=== PATIENT | female | born 1975 | race Caucasian/White ===

== ENCOUNTER 2016-06-02 00:32 | Inpatient (IN) | payer MEDICAID ==
[2016-06-02] MEDS ORDERED: Thiamine 200 MG/2 ML MDV IM ONE (01:30)
[2016-06-02] MEDS ORDERED: cloNIDine 0.1 MG Tab ONE (03:13)
[2016-06-02] MEDS ORDERED: diphenhydrAMINE 50 MG Cap ONE (03:13)
[2016-06-02] MEDS ORDERED: LORazepam 0.5 MG Tab ONE (03:49)
[2016-06-02] MEDS ORDERED: diphenhydrAMINE 50 MG Cap PO PRN (05:45)
[2016-06-02] MEDS ORDERED: Haloperidol 1 MG Tab PO SCH (06:00)
[2016-06-02] MEDS ORDERED: OXcarbazepine 300 MG Tab PO SCH (08:00)
[2016-06-02] MEDS: PARoxetine 20 MG Tab PO SCH (08:30)
[2016-06-02] MEDS: Haloperidol 1 MG Tab PO SCH ×2 (09:00→17:15)
[2016-06-02] MEDS ORDERED: Sodium Chloride 0.9% 10 ML Syringe FLUSH PRN (10:54)
[2016-06-02] MEDS: busPIRone 15 MG Tab PO SCH ×2 (11:23→20:42)
[2016-06-02] MEDS: Sodium Chloride 0.45% 1,000 ML IV SCH ×2 (12:23→20:40)
[2016-06-02] MEDS ORDERED: Metoclopramide 10 MG/2 ML SDV IVPUSH PRN (15:00)
[2016-06-02] MEDS: Acetaminophen 325 MG Tab PO PRN (15:24)
[2016-06-02] MEDS: Nicotine 21 MG/24 Hr Patch TRDERM SCH (16:45)
[2016-06-02] MEDS ORDERED: cloNIDine 0.1 MG Tab PO SCH (20:00)
[2016-06-02] MEDS ORDERED: ClonazePAM 1 MG Tab PO SCH (20:00)
[2016-06-02] MEDS: OXcarbazepine 150 MG Tab PO SCH (20:43)
[2016-06-03] MEDS: Acetaminophen 325 MG Tab PO PRN (02:59)
[2016-06-03] MEDS: Haloperidol 1 MG Tab PO SCH ×2 (03:00→09:37)
[2016-06-03 03:06] VITALS: BP 138/65
[2016-06-03] MEDS: busPIRone 15 MG Tab PO SCH (09:29)
[2016-06-03] MEDS: OXcarbazepine 150 MG Tab PO SCH (09:30)
[2016-06-03] MEDS: Nicotine 21 MG/24 Hr Patch TRDERM SCH (09:33)
[2016-06-03] MEDS: PARoxetine 20 MG Tab PO SCH (09:36)
[2016-06-03] MEDS ORDERED: PARoxetine 20 MG Tab ONE (09:41)
[2016-06-03] MEDS ORDERED: Haloperidol 1 MG Tab ONE (09:42)
== END 2016-06-03 11:01 | disposition home or self-care (01) | DRG 684 ==
LOC: LB.ED 00:32 → UNDOADMIN 02:55 → LB.MS 02:55
PROVIDERS: ADMIT Internal Medicine; ATTEND Internal Medicine
DX: N17.9 Acute kidney failure, unspecified (principal); T51.2X4A Toxic effect of 2-Propanol, undetermined, initial encounter; Y92.009 Unspecified place in unspecified non-institutional (private) residence as the place of occurrence of the external cause; F10.21 Alcohol dependence, in remission; F31.9 Bipolar disorder, unspecified; Z87.891 Personal history of nicotine dependence
CPT/HCPCS: 36415; 80048; 80053; 80307; 81001; 82550; 83735; 84550; 85025; 93005; 96372; 99285-25; A0425; A0429; A9270-GY; G0480; J2765; J3411; J3490; J7050

== ENCOUNTER 2016-06-22 08:54 | Emergency (ER) | payer MEDICAID ==
[2016-06-22] MEDS ORDERED: Albuterol/Ipratropium 3.0-0.5 MG/3 ML Neb Soln NEB STA (09:30)
[2016-06-22] MEDS ORDERED: Albuterol/Ipratropium 3.0-0.5 MG/3 ML Neb Soln ONE (09:32)
--- NOTE | 2016-06-22 09:39 | EDM.PDOC ---
ED HPI GENERAL MEDICAL PROBLEM - General Chief Complaint: General Stated Complaint: SOB Time Seen by Provider: 06/22/16 09:00 Source of Information: Reports: Patient History Limitations: Reports: No limitations - History of Present Illness INITIAL COMMENTS - FREE TEXT/NARRATIVE: Pt claims that she has been having cough for the past 1 wk now. Cough has been minimally productive, with whitish yellow sputum. Cough is present all day and night. deep breathing makes it worse. has had chills over the weekend, but no fever. She has been having episodes of wheezing on and off and chest tightness when she coughs. No chest pain or pain with deep breathing. No other complaints. Duration: Week(s): (1) Improves with: Reports: None Worsens with: Reports: Breathing Associated Symptoms: Reports: cough. Denies: confusion, chest pain, diaphoresis , fever/chills, headaches, loss of appetite, nausea/vomiting, rash, shortness of breath, syncope, weakness - Related Data Allergies Allergy/AdvReac Type Severity Reaction Status Date / Time No Known Allergies Allergy Verified 06/22/16 09:06 Home Meds: Home Meds Haloperidol [Haloperidol] 2 mg PO BID 11/11/13 [History] PARoxetine [Paxil] 40 mg PO DAILY 11/11/13 [History] Ziprasidone HCl [Ziprasidone HCl] 40 mg PO BID 11/11/13 [History] Ziprasidone HCl [Ziprasidone HCl] 80 mg PO BID 11/11/13 [History] OLANZapine [ZyPREXA] 20 mg PO BEDTIME tablet 06/03/16 [Rx] OXcarbazepine [Trileptal] 150 mg PO BID tablet 06/03/16 [Rx] PARoxetine [Paxil] 40 mg PO DAILY tablet 06/03/16 [Rx] Ziprasidone HCl [Geodon] 40 mg PO BID cap 06/03/16 [Rx] Ziprasidone HCl [Geodon] 80 mg PO BID cap 06/03/16 [Rx] busPIRone [Buspar] 7.5 mg PO BID #60 tablet 06/03/16 [Rx] cloNIDine [Catapres] 0.2 mg PO BEDTIME #30 tablet 06/03/16 [Rx] lamoTRIgine [LaMICtal] 150 mg PO BID tablet 06/03/16 [Rx] Albuterol [Proventil HFA] 6.7 gm INH Q4H #1 inhaler 06/22/16 [Rx] Sulfamethoxazole/Trimethoprim [Bactrim Ds Tablet] 1 each PO BID #14 tablet 06/22 [Rx] Past Medical History Other HEENT History: Hx of Broken Nose in the past Other OB/BYN History: Still born Neurological History: Reports: Seizure Psychiatric History: Reports: Addiction, Other (see below) Other Psychiatric History: pt drank a bottle of rubbing alcholol, hx of bipolar alcoholism addiction Social & Family History - Tobacco Use Smoking Status *Q: Current Every Day Smoker Years of Tobacco use: 20 Packs/Tins Daily: 2 Used Tobacco, but Quit: No Second Hand Smoke Exposure: Yes - Caffeine Use Caffeine Use: Reports: Coffee, Soda - Alcohol Use Days Per Week of Alcohol Use: 7 Number of Drinks Per Day: 4 Total Drinks Per Week: 28 - Recreational Drug Use Recreational Drug Use: No Drug Use in Last 12 Months: Yes Recreational Drug Type: Reports: Other (see below) Recreational Drug Use Frequency: Daily ED ROS GENERAL - Review of Systems Review Of Systems: See Below Constitutional: Reports: chills, weakness. Denies: fever HEENT: Denies: Ear pain, Rhinitis, Sinus problem, Throat pain Respiratory: Reports: Wheezing, Cough, Sputum. Denies: Hemoptysis Cardiovascular: Denies: Chest pain, Lightheadedness GI/Abdominal: Denies: Abdominal pain, Constipation, Diarrhea, Nausea, Vomiting : Denies: dysuria, flank pain Musculoskeletal: Denies: joint pain, joint swelling Skin: Denies: pruritis, rash ED EXAM, GENERAL - Physical Exam Exam: See Below Exam Limited By: No limitations General Appearance: alert, WD/WN, no apparent distress Eye Exam: bilateral eye: EOMI, PERRL Ears: normal external exam, normal canal, hearing grossly normal, normal TMs Ear Exam: bilateral ear: auricle normal, canal normal, TM normal Nose: normal inspection, normal mucosa, no blood Throat/Mouth: Normal inspection, Normal lips, Normal teeth, Normal gums, Normal oropharynx, Normal voice, No airway compromise Head: atraumatic, normocephalic Neck: normal inspection, supple, non-tender, full range of motion Respiratory/Chest: no respiratory distress, normal breath sounds, no accessory muscle use, chest non-tender, crackles (scatterred over lung cheng), rhonchi ( scatterred over lung cheng) Cardiovascular: normal peripheral pulses, regular rate, rhythm, no edema, no gallop, no JVD, no murmur, no rub Neurological: alert, oriented, CN II-XII intact, normal cognition, normal gait, normal reflexes, no motor/sensory deficits Psychiatric: normal affect, normal mood Course - Vital Signs Text/Narrative:: Pt has been having coughing spell in the emergency room, she does have significant expiratory wheezing, with scattered crackles. She did receive Duonebs treatment in the emergency room, her wheezing improved, SPO2 is 96 % on room air. Her CBC is normal and chest xray appears normal. Pt reassured that she has developed Bronchitis, started on bactrim DS for 1 wk. Albuterol inhalers every 4 hrs as needed for wheezing . Steam inhalations 2-3 times daily. Incentive spirometry every 2 hrs.Rest and hydration. Followup in clinic if symptoms worsen. - Orders/Labs/Meds Orders: Active Orders 24 hr Category Date Time Status RT Aerosol Therapy [RC] ASDIRECTED Care 06/22/16 09:32 Ordered Chest 2V [CR] Stat Exams 06/22/16 09:32 Ordered Labs: Laboratory Tests 06/22/16 Range/Units 09:32 WBC 7.8 (4.0-11.0) K/uL RBC 4.10 (3.80-5.80) M/uL Hgb 10.6 L (11.5-16.5) g/dL Hct 33.2 L (37.0-47.0) % MCV 81 (76-96) fL MCH 25.9 L (27.0-32.0) pg MCHC 31.9 (31.0-35.0) g/dL RDW 17.5 H (11.0-16.0) % Plt Count 272 D (150-500) K/uL MPV 8.3 (6.0-10.0) fL Neut % (Auto) 67.1 (45.0-70.0) % Lymph % (Auto) 14.8 L (20.0-40.0) % Gladwin % (Auto) 16.5 H (3.0-10.0) % Eos % (Auto) 1.5 (1.0-5.0) % Baso % (Auto) 0.1 (0.0-0.5) % Neut # (Auto) 5.22 (2.00-7.50) K/uL Lymph # (Auto) 1.15 L (1.50-4.00) K/uL Gladwin # (Auto) 1.28 H (0.20-0.80) K/uL Eos # (Auto) 0.12 (0.04-0.40) K/uL Baso # (Auto) 0.01 L (0.02-0.10) K/uL Meds: Medications Discontinued Medications Generic Name Dose Route Start Last Admin Trade Name Aurelioq PRN Reason Stop Dose Admin Albuterol/Ipratropium Confirm 06/22/16 09:32 06/22/16 09:37 Duoneb 3.0-0.5 Mg/3 Ml Administered 06/22/16 09:33 Not Given Dose 3 ml .ROUTE .STK-MED ONE Albuterol/Ipratropium 3 ml 06/22/16 09:30 06/22/16 09:37 Duoneb 3.0-0.5 Mg/3 Ml NEB 06/22/16 09:31 3 ml NOW STA Administration Departure - Departure Time of Disposition: 10:15 Disposition: Home, Self-Care 01 Condition: good Clinical Impression: Bronchitis Prescriptions: Albuterol [Proventil HFA] 6.7 gm INH Q4H #1 inhaler Sulfamethoxazole/Trimethoprim [Bactrim Ds Tablet] 1 each PO BID #14 tablet Forms: ED Department Discharge Additional Instructions: Pt reassured that she has developed Bronchitis, started on bactrim DS for 1 wk. Albuterol inhalers every 4 hrs as needed for wheezing . Steam inhalations 2-3 times daily. Incentive spirometry every 2 hrs.Rest and hydration. Followup in clinic if symptoms worsen. - Problem List & Annotations (1) Bronchitis SNOMED Code(s): 31611387 Code(s): J40 - BRONCHITIS, NOT SPECIFIED ACUTE OR CHRONIC Status: Acute Current Visit: Yes - Problem List Review Problem List Initiated/Reviewed/Updated: Yes - My Orders Last 24 Hours: My Active Orders 06/22/16 09:32 RT Aerosol Therapy [RC] ASDIRECTED Chest 2V [CR] Stat - Assessment/Plan Last 24 Hours: My Active Orders 06/22/16 09:32 RT Aerosol Therapy [RC] ASDIRECTED Chest 2V [CR] Stat Assessment:: Bronchitis Plan: Pt has been having coughing spell in the emergency room, she does have significant expiratory wheezing, with scattered crackles. She did receive Duonebs treatment in the emergency room, her wheezing improved, SPO2 is 96 % on room air. Her CBC is normal and chest xray appears normal. Pt reassured that she has developed Bronchitis, started on bactrim DS for 1 wk. Albuterol inhalers every 4 hrs as needed for wheezing . Steam inhalations 2-3 times daily. Incentive spirometry every 2 hrs.Rest and hydration. Followup in clinic if symptoms worsen.
[2016-06-22 10:27] VITALS: BP 134/79
--- NOTE | 2016-06-23 07:23 | CR ---
DATE OF SERVICE: 06/22/16 CLINICAL DATA: cough PA AND LATERAL CHEST: The heart size is normal. The lungs are clear. No pneumothorax. No pleural effusions. No areas of consolidation. No significant interval changes from the prior exam dated 07/25/08. IMPRESSION: No evidence of acute intrathoracic disease. [id number] [facility]
== END 2016-06-22 10:15 | disposition home or self-care (01) ==
LOC: LB.ED 08:54
DX: J40 Bronchitis, not specified as acute or chronic (principal); F17.210 Nicotine dependence, cigarettes, uncomplicated; Z79.899 Other long term (current) drug therapy
CPT/HCPCS: 36415; 71020; 85025; 99285; J7620; 99283

== ENCOUNTER 2016-08-21 14:27 | Emergency (ER) | payer MEDICAID ==
[2016-08-21] MEDS ORDERED: Ketorolac 60 MG/2 ML SDV IM ONE (14:35)
[2016-08-21 14:52] VITALS: BP 149/92
--- NOTE | 2016-08-21 15:24 | EDM.PDOC ---
ED HPI GENERAL MEDICAL PROBLEM - General Chief Complaint: General Stated Complaint: LEFT WRIST INJURY Time Seen by Provider: 08/21/16 14:50 Source of Information: Reports: Patient - History of Present Illness INITIAL COMMENTS - FREE TEXT/NARRATIVE: This is a 40yo F who fell on her wrist and complains of severe pain the past day. Patient states she sat down and fell backwards twisting and sitting on her wrist. Denies other complaints today. Onset: Today Duration: Hour(s):, Constant Location: Reports: Upper Extremity, Left Quality: Reports: Ache Severity: Severe Worsens with: Reports: Movement Associated Symptoms: Reports: No Other Symptoms - Related Data Allergies Allergy/AdvReac Type Severity Reaction Status Date / Time No Known Allergies Allergy Verified 06/22/16 09:06 Home Meds: Home Meds Haloperidol [Haloperidol] 2 mg PO BID 11/11/13 [History] PARoxetine [Paxil] 40 mg PO DAILY 11/11/13 [History] Ziprasidone HCl [Ziprasidone HCl] 40 mg PO BID 11/11/13 [History] Ziprasidone HCl [Ziprasidone HCl] 80 mg PO BID 11/11/13 [History] OLANZapine [ZyPREXA] 20 mg PO BEDTIME tablet 06/03/16 [Rx] OXcarbazepine [Trileptal] 150 mg PO BID tablet 06/03/16 [Rx] PARoxetine [Paxil] 40 mg PO DAILY tablet 06/03/16 [Rx] Ziprasidone HCl [Geodon] 40 mg PO BID cap 06/03/16 [Rx] Ziprasidone HCl [Geodon] 80 mg PO BID cap 06/03/16 [Rx] busPIRone [Buspar] 7.5 mg PO BID #60 tablet 06/03/16 [Rx] cloNIDine [Catapres] 0.2 mg PO BEDTIME #30 tablet 06/03/16 [Rx] lamoTRIgine [LaMICtal] 150 mg PO BID tablet 06/03/16 [Rx] Albuterol [Proventil HFA] 6.7 gm INH Q4H #1 inhaler 06/22/16 [Rx] Sulfamethoxazole/Trimethoprim [Bactrim Ds Tablet] 1 each PO BID #14 tablet 06/22 [Rx] Past Medical History Other HEENT History: Hx of Broken Nose in the past Cardiovascular History: Reports: SOB on Exertion Respiratory History: Reports: Bronchitis, Recurrent, SOB Gastrointestinal History: Reports: Chronic Constipation Other OB/BYN History: Still born Musculoskeletal History: Reports: Arthritis Neurological History: Reports: Seizure Psychiatric History: Reports: Addiction, Other (See Below) Other Psychiatric History: pt drank a bottle of rubbing alcholol, hx of bipolar alcoholism addiction - Past Surgical History Musculoskeletal Surgical History: Reports: None Oncologic Surgical History: Reports: None Social & Family History - Tobacco Use Smoking Status *Q: Current Every Day Smoker Years of Tobacco use: 30 Packs/Tins Daily: 2 Used Tobacco, but Quit: No Second Hand Smoke Exposure: Yes - Caffeine Use Caffeine Use: Reports: Coffee, Soda - Alcohol Use Days Per Week of Alcohol Use: 7 Number of Drinks Per Day: 4 Total Drinks Per Week: 28 - Recreational Drug Use Recreational Drug Use: No Drug Use in Last 12 Months: Yes Recreational Drug Type: Reports: Other (see below) Recreational Drug Use Frequency: Daily ED ROS GENERAL - Review of Systems Review Of Systems: ROS reveals no pertinent complaints other than HPI. ED EXAM, GENERAL - Physical Exam Exam: See Below Exam Limited By: No Limitations General Appearance: Alert, WD/WN, No Apparent Distress, Anxious Head: Atraumatic, Normocephalic Neck: Normal Inspection Respiratory/Chest: No Respiratory Distress Cardiovascular: Normal Peripheral Pulses Peripheral Pulses: 2+: Radial (L), Radial (R) GI/Abdominal: Normal Bowel Sounds Extremities: Other (tender left wrist) Neurological: Alert, Oriented Course - Vital Signs Last Recorded V/S: Last Vital Signs Temp 36.9 C 08/21/16 14:50 Pulse 97 08/21/16 14:50 Resp 18 08/21/16 14:50 BP 149/92 H 08/21/16 14:50 Pulse Ox 99 08/21/16 14:50 - Orders/Labs/Meds Orders: Active Orders 24 hr Category Date Time Status Wrist Comp Min 3V Lt [CR] Stat Exams 08/21/16 14:36 Taken Meds: Medications Discontinued Medications Generic Name Dose Route Start Last Admin Trade Name Freq PRN Reason Stop Dose Admin Ketorolac Tromethamine 60 mg 08/21/16 14:35 08/21/16 14:38 Toradol IM 08/21/16 14:36 60 mg ONETIME ONE Administration Departure - Departure Time of Disposition: 15:23 Disposition: Home, Self-Care 01 Condition: good Clinical Impression: Injury of left forearm Qualifiers: Encounter type: initial encounter Qualified Code(s): S59.912A - Unspecified injury of left forearm, initial encounter Injury of left wrist Qualifiers: Encounter type: initial encounter Qualified Code(s): S69.92XA - Unspecified injury of left wrist, hand and finger(s), initial encounter - Discharge Information Instructions: Wrist Sprain Referrals: PCP,None [Primary Care Provider] - Forms: ED Department Discharge Care Plan Goals: Ice extremity as much as possible. Keep extremity elevated as much as possible. Return to clinic if no improvement noted. - My Orders Last 24 Hours: My Active Orders 08/21/16 14:36 Wrist Comp Min 3V Lt [CR] Stat - Assessment/Plan Last 24 Hours: My Active Orders 08/21/16 14:36 Wrist Comp Min 3V Lt [CR] Stat
--- NOTE | 2016-08-22 18:18 | CR ---
DATE OF SERVICE: 08/21/2016 CLINICAL DATA: Fell on wrist. LEFT WRIST No acute fracture or dislocation. No lytic or blastic bone lesions. IMPRESSION: Negative exam. [id number] [facility]
== END 2016-08-21 15:10 | disposition home or self-care (01) ==
LOC: LB.ED 14:27
DX: S59.912A Unspecified injury of left forearm, initial encounter (principal); S69.92XA Unspecified injury of left wrist, hand and finger(s), initial encounter; F17.210 Nicotine dependence, cigarettes, uncomplicated; W19.XXXA Unspecified fall, initial encounter; Y93.89 Activity, other specified; Z88.8 Allergy status to other drugs, medicaments and biological substances
CPT/HCPCS: 73110; 96372; 99283; J1885

== ENCOUNTER 2016-09-14 23:53 | Emergency (ER) | payer MEDICAID ==
[2016-09-15] MEDS ORDERED: Gabapentin 300 MG Cap ONE (00:45)
[2016-09-15 06:25] VITALS: BP 163/94
--- NOTE | 2016-09-16 10:24 | ER ---
HISTORY OF PRESENT ILLNESS: The patient enters the ER with a chief complaint of numbness in her fingertips after a right carpal tunnel surgery earlier in the day. The patient is requesting pain medication for her hand. REVIEW OF SYSTEMS: CONSTITUTIONAL: The patient denies any fevers. MUSCULOSKELETAL: She denies any limitations in the motion of her joints in her fingers. She denies any pain. She just complains of numbness of her fingertips. She denies any discharge from her surgical site, any swelling or pain around her surgical site, any redness around her surgical site. PSYCH: The patient does have multiple psych issues including histories of substance abuse. No other positive findings on her review of systems. PHYSICAL EXAMINATION: GENERAL: Reveals a well-developed, well-nourished, possibly intoxicated female. She is alert, she is oriented x3, in no acute distress. VITAL SIGNS: Upon admission shows temperature 97.8, pulse 88, temperature 96, blood pressure 163/94. Right hand appears to be warm and pink with good refill distally. She is able to move all her fingers. Wound site is checked, it is clean and dry. There is no discharge, no redness, no fluctuation, and no pain. Dressing is re-applied. ASSESSMENT: Postop carpal tunnel surgery, numbness of fingertips, all fingers. PLAN: The patient will call her surgeon in the morning and follow up with her surgeon. Overnight, she will be given gabapentin 300 mg and if necessary she could repeat that dose in the a.m. No narcotic pain medications were dispensed. The patient has a history of acute renal failure. I will have her avoid anti-inflammatories at this time. If she does get changes in her complaints, she is to return to the ER in the meantime, but in the morning, she will contact her surgeon and follow up there for any further issues. LUIS DANIEL /[id number]
== END 2016-09-15 00:55 | disposition home or self-care (01) ==
LOC: LB.ED 23:53
DX: R20.0 Anesthesia of skin (principal); Z98.890 Other specified postprocedural states
CPT/HCPCS: 99283; A9270; 99282

== ENCOUNTER 2016-11-28 15:19 | Emergency (ER) | payer MEDICAID ==
[2016-11-28] MEDS ORDERED: Magnesium Citrate Solution 296 ML Bottle PO ONE (18:03)
[2016-11-28] MEDS ORDERED: LORazepam 1 MG Tab PO ONE (18:04)
[2016-11-28] MEDS ORDERED: LORazepam 1 MG Tab ONE (18:09)
--- NOTE | 2016-11-28 18:10 | EDM.PDOC ---
ED HPI GENERAL MEDICAL PROBLEM - General Chief Complaint: General Stated Complaint: CONSTIPATED X 22 DAYS Time Seen by Provider: 11/28/16 16:45 Source of Information: Reports: Patient History Limitations: Reports: No Limitations - History of Present Illness INITIAL COMMENTS - FREE TEXT/NARRATIVE: Pt claims that she has been constipated for 22 days, she ahs been eating well. No abdominal pain. no nausea or vomiting. Feels distended in the lower abdomen, and feels urge to poop. She has tried OTC stool softener with no help. No fever or chills. She does claim 3 days ago she had some watery green stools and since then no more stools. Has been Passing flatus. - Related Data Allergies Allergy/AdvReac Type Severity Reaction Status Date / Time No Known Allergies Allergy Verified 09/15/16 06:01 Home Meds: Home Meds Haloperidol [Haloperidol] 2 mg PO BID 11/11/13 [History] PARoxetine [Paxil] 40 mg PO DAILY 11/11/13 [History] Ziprasidone HCl [Ziprasidone HCl] 40 mg PO BID 11/11/13 [History] Ziprasidone HCl [Ziprasidone HCl] 80 mg PO BID 11/11/13 [History] OLANZapine [ZyPREXA] 20 mg PO BEDTIME tablet 06/03/16 [Rx] OXcarbazepine [Trileptal] 150 mg PO BID tablet 06/03/16 [Rx] PARoxetine [Paxil] 40 mg PO DAILY tablet 06/03/16 [Rx] Ziprasidone HCl [Geodon] 40 mg PO BID cap 06/03/16 [Rx] Ziprasidone HCl [Geodon] 80 mg PO BID cap 06/03/16 [Rx] busPIRone [Buspar] 7.5 mg PO BID #60 tablet 06/03/16 [Rx] cloNIDine [Catapres] 0.2 mg PO BEDTIME #30 tablet 06/03/16 [Rx] lamoTRIgine [LaMICtal] 150 mg PO BID tablet 06/03/16 [Rx] Albuterol [Proventil HFA] 6.7 gm INH Q4H #1 inhaler 06/22/16 [Rx] Sulfamethoxazole/Trimethoprim [Bactrim Ds Tablet] 1 each PO BID #14 tablet 06/22 [Rx] Past Medical History Other HEENT History: Hx of Broken Nose in the past Cardiovascular History: Reports: SOB on Exertion Respiratory History: Reports: Bronchitis, Recurrent, SOB Gastrointestinal History: Reports: Chronic Constipation Other OB/BYN History: Still born Musculoskeletal History: Reports: Arthritis Neurological History: Reports: Seizure Psychiatric History: Reports: Addiction, Other (See Below) Other Psychiatric History: pt drank a bottle of rubbing alcholol, hx of bipolar alcoholism addiction - Past Surgical History Musculoskeletal Surgical History: Reports: None, Other (See Below) Other Musculoskeletal Surgeries/Procedures:: Carpal Tunnel [id number] at [facility] Social & Family History - Tobacco Use Smoking Status *Q: Current Every Day Smoker Years of Tobacco use: 27 Packs/Tins Daily: 2 Used Tobacco, but Quit: No Second Hand Smoke Exposure: Yes - Caffeine Use Caffeine Use: Reports: Coffee, Energy Drinks, Soda, Tea - Alcohol Use Days Per Week of Alcohol Use: 7 Number of Drinks Per Day: 4 Total Drinks Per Week: 28 - Recreational Drug Use Recreational Drug Use: No Drug Use in Last 12 Months: Yes Recreational Drug Type: Reports: Other (see below) Recreational Drug Use Frequency: Daily ED ROS GENERAL - Review of Systems Review Of Systems: See Below Constitutional: Denies: Fever, Chills, Weakness HEENT: Denies: Rhinitis, Throat Pain, Throat Swelling Respiratory: Denies: Shortness of Breath, Wheezing, Cough, Sputum Cardiovascular: Denies: Chest Pain, Lightheadedness GI/Abdominal: Reports: Constipation. Denies: Abdominal Pain, Anorexia, Diarrhea , Nausea, Vomiting : Denies: Dysuria, Flank Pain Skin: Denies: Pruritis, Rash Neurological: Denies: Confusion, Dizziness ED EXAM, GENERAL - Physical Exam Exam: See Below Exam Limited By: No Limitations General Appearance: Alert, WD/WN, No Apparent Distress, Anxious Eye Exam: Bilateral Eye: EOMI, PERRL Ears: Normal External Exam, Normal Canal, Hearing Grossly Normal, Normal TMs Ear Exam: Bilateral Ear: Auricle Normal, Canal Normal, TM normal Nose: Normal Inspection, Normal Mucosa, No Blood Throat/Mouth: Normal Inspection, Normal Lips, Normal Teeth, Normal Gums, Normal Oropharynx, Normal Voice, No Airway Compromise Head: Atraumatic, Normocephalic Neck: Normal Inspection, Supple, Non-Tender, Full Range of Motion Respiratory/Chest: No Respiratory Distress, Lungs Clear, Normal Breath Sounds, No Accessory Muscle Use, Chest Non-Tender Cardiovascular: Normal Peripheral Pulses, Regular Rate, Rhythm, No Edema, No Gallop, No JVD, No Murmur, No Rub GI/Abdominal: Normal Bowel Sounds, Soft, Non-Tender, No Organomegaly, No Distention, No Abnormal Bruit, No Mass Rectal (Female) Exam: Normal Exam, Normal Rectal Tone, Other (there is no stool impaction in the rectal vault. Exam done with Marco A peterson the room Luci Persaud). No: Black Stool, Bloody Stool, Rectal Fissure Course - Vital Signs Text/Narrative:: AXR shows normal gas pattern. I do not see excessive stool. Pt reassured. She did received Mag citrate 1 bottle to drink. should have bowel movement to night or tomorrow, might have few loose stools. Also she is very anxious hence ativan 1mg oral was given to her in the emergency room. Followup in clinic for further workup. - Orders/Labs/Meds Orders: Active Orders 24 hr Category Date Time Status Abdomen 1V Upright [CR] Stat Exams 11/28/16 17:37 Taken LORazepam [Ativan] Med 11/28/16 18:04 Once 1 mg PO ONETIME ONE Magnesium Citrate [Citrate of Magnesia] Med 11/28/16 18:03 Once 296 ml PO ONETIME ONE Medication Orders Lorazepam (Ativan) 1 mg PO ONETIME ONE Stop: 11/28/16 18:05 Magnesium Citrate (Citrate Of Magnesia) 296 ml PO ONETIME ONE Stop: 11/28/16 18:04 Meds: Medications Generic Name Dose Route Start Last Admin Trade Name Ermelinda PRN Reason Stop Dose Admin Lorazepam 1 mg 11/28/16 18:04 Ativan PO 11/28/16 18:05 ONETIME ONE Magnesium Citrate 296 ml 11/28/16 18:03 Citrate Of Magnesia PO 11/28/16 18:04 ONETIME ONE Departure - Departure Time of Disposition: 18:00 Disposition: Home, Self-Care 01 Condition: Good Clinical Impression: Constipation - Discharge Information - Problem List & Annotations (1) Constipation SNOMED Code(s): 66660229 Code(s): K59.00 - CONSTIPATION, UNSPECIFIED Status: Acute Current Visit: Yes - Problem List Review Problem List Initiated/Reviewed/Updated: Yes - My Orders Last 24 Hours: My Active Orders 11/28/16 17:37 Abdomen 1V Upright [CR] Stat 11/28/16 18:03 Magnesium Citrate [Citrate of Magnesia] 296 ml PO ONETIME ONE 11/28/16 18:04 LORazepam [Ativan] 1 mg PO ONETIME ONE - Assessment/Plan Last 24 Hours: My Active Orders 11/28/16 17:37 Abdomen 1V Upright [CR] Stat 11/28/16 18:03 Magnesium Citrate [Citrate of Magnesia] 296 ml PO ONETIME ONE 11/28/16 18:04 LORazepam [Ativan] 1 mg PO ONETIME ONE Assessment:: Constipation Plan: AXR shows normal gas pattern. I do not see excessive stool. Pt reassured. She did received Mag citrate 1 bottle to drink. should have bowel movement to night or tomorrow, might have few loose stools. Also she is very anxious hence ativan 1mg oral was given to her in the emergency room. Followup in clinic for further workup.
[2016-11-28 20:36] VITALS: BP 157/83
--- NOTE | 2016-11-29 10:26 | CR ---
DATE OF SERVICE: 11/28/2016 CLINICAL DATA: Constipation and bloating. UPRIGHT ABDOMEN Comparison made to a prior exam dated 05/09/2012. There are surgical changes in the region of the stomach. There is a moderate amount of gas and stool present throughout the colon. There is some small bowel gas. There are scattered air-fluid levels. I cannot exclude an obstruction or ileus. No free air. [id number] [facility]
== END 2016-11-28 18:10 | disposition home or self-care (01) ==
LOC: LB.ED 15:19
DX: K59.00 Constipation, unspecified (principal); M19.90 Unspecified osteoarthritis, unspecified site; F17.210 Nicotine dependence, cigarettes, uncomplicated
CPT/HCPCS: 74000; 99283; 99284

== ENCOUNTER 2016-12-21 09:27 | Day surgery (SDC) | payer MEDICAID ==
[~2016-12-21 09:27] MED LIST: Metoclopramide 10 MG/2 ML SDV IV PRN; Sodium Chloride 0.9% 1,000 ML IV SCH
[2016-12-21] MEDS ORDERED: Propofol 200 MG/20 ML SDV ONE ×2 (11:30)
[2016-12-21 12:52] VITALS: BP 144/71
--- NOTE | 2016-12-21 17:31 | OR ---
DATE OF OPERATION: 12/21/2016 PREOPERATIVE DIAGNOSES: 1. History of polyps. 2. Change in bowel habits. POSTOPERATIVE DIAGNOSES: 1. History of polyps. 2. Change in bowel habits. PROCEDURE: Colonoscopy. ANESTHESIA: MAC. ESTIMATED BLOOD LOSS: None. COMPLICATIONS: None. INDICATIONS FOR PROCEDURE: The patient is a 41-year-old female with a previous history of polyps, also has a family history of colon cancer with her grandmother dying from colon cancer. The patient was seen by primary care recently and thought to have a 1 cm rectal mass. The patient is here today for colonoscopy. DESCRIPTION OF PROCEDURE: Informed consent was obtained from the patient. The patient was taken to the OR, and placed in the left lateral decubitus position. Monitored anesthesia care was applied. On digital rectal exam, no masses identified. Good rectal tone. Colonoscope was then advanced through the anus and directed towards the cecum. We did use abdominal pressure. I was to reach the cecum, identified by ileocecal valve and the appendiceal orifice. The cecum appeared to be normal. The colonoscope was slowly withdrawn. No areas of masses. No polyps. No areas of inflammation. No ischemia. No AV malformations. The patient did have a poor prep. Smaller lesions may have been missed in the colon. The colonoscope was slowly withdrawn. Retroflexion was performed in the rectum showing no signs of masses. The colonoscope was then removed. FINDINGS: Normal colonoscopy, but with poor prep. No evidence for rectal mass. RECOMMENDATIONS: Due to the poor prep, would recommend repeat colonoscopy in 3 years as smaller lesions may have been missed on exam. MINDI/MIREYA /[id number]
== END 2016-12-21 12:57 ==
LOC: LB.SDS 09:27
PROVIDERS: ATTEND Surgery
DX: Z12.11 Encounter for screening for malignant neoplasm of colon (principal); J45.909 Unspecified asthma, uncomplicated; Z86.010 Personal history of colon polyps; Z79.899 Other long term (current) drug therapy
CPT/HCPCS: 45378; J2704; J7040

== ENCOUNTER 2017-08-11 03:35 | Emergency (ER) | payer MEDICAID ==
--- NOTE | 2017-08-11 04:26 | EDM.PDOC ---
ED HPI GENERAL MEDICAL PROBLEM - General Chief Complaint: General Stated Complaint: Swollen Legs Time Seen by Provider: 08/11/17 04:10 Source of Information: Reports: Patient History Limitations: Reports: No Limitations - History of Present Illness INITIAL COMMENTS - FREE TEXT/NARRATIVE: Pt was brought in by EMS.According to patient she claims that she fell 2 days ago and she has bruising and swelling of the legs. Also she claims that she has had chest pain over the lest side of the chest with tingling in her left arm since 10 Pm last night. Pain she claims is constant and dull achy type.Does not get worse with exertion or walking. No shortness of breath. No sweating, nausea or vomiting. She has not been taking clonidine for her blood pressure and her BP has been high.She has empty bottle of clonidine . Pt has history of bipolar disorder and chronic alcoholism, poor general care. Pt is happy in the emergency room and laughing and making joke s and comments about old age, does not appear to be in any sort of acute distress. Pt claims that she ate whole box of corcidin and 3 bottles of dextrametharphan yesterday. Also she claims that she wanted a ride to get the squash plant to her father who lives at the [facility]. Onset Date: 08/10/17 Onset Time: 22:00 Duration: Constant Location: Reports: Chest Quality: Reports: Ache Severity: Mild Improves with: Reports: None Worsens with: Reports: None Associated Symptoms: Reports: Chest Pain. Denies: Confusion, Cough, Diaphoresis , Fever/Chills, Headaches, Loss of Appetite, Nausea/Vomiting, Rash, Seizure, Shortness of Breath, Syncope, Weakness - Related Data Allergies Allergy/AdvReac Type Severity Reaction Status Date / Time No Known Allergies Allergy Verified 12/18/16 13:34 Home Meds: Home Meds Haloperidol 2 mg PO BID 11/11/13 [History] PARoxetine [Paxil] 40 mg PO DAILY 11/11/13 [History] Ziprasidone HCl 40 mg PO BID 11/11/13 [History] Ziprasidone HCl 80 mg PO BID 11/11/13 [History] OLANZapine [ZyPREXA] 20 mg PO BEDTIME tablet 06/03/16 [Rx] OXcarbazepine [Trileptal] 150 mg PO BID tablet 06/03/16 [Rx] PARoxetine [Paxil] 40 mg PO DAILY tablet 06/03/16 [Rx] Ziprasidone HCl [Geodon] 40 mg PO BID cap 06/03/16 [Rx] Ziprasidone HCl [Geodon] 80 mg PO BID cap 06/03/16 [Rx] busPIRone [Buspar] 7.5 mg PO BID #60 tablet 06/03/16 [Rx] cloNIDine [Catapres] 0.2 mg PO BEDTIME #30 tablet 06/03/16 [Rx] lamoTRIgine [LaMICtal] 150 mg PO BID tablet 06/03/16 [Rx] Albuterol [Proventil HFA] 6.7 gm INH Q4H #1 inhaler 06/22/16 [Rx] Sulfamethoxazole/Trimethoprim [Bactrim Ds Tablet] 1 each PO BID #14 tablet 06/22 [Rx] Past Medical History Other HEENT History: Hx of Broken Nose in the past Cardiovascular History: Reports: SOB on Exertion Respiratory History: Reports: Bronchitis, Recurrent, SOB Gastrointestinal History: Reports: Chronic Constipation Other OB/BYN History: Still born Musculoskeletal History: Reports: Arthritis Neurological History: Reports: Seizure Psychiatric History: Reports: Addiction, Other (See Below) Other Psychiatric History: pt drank a bottle of rubbing alcholol, hx of bipolar alcoholism addiction - Past Surgical History Musculoskeletal Surgical History: Reports: None, Other (See Below) Other Musculoskeletal Surgeries/Procedures:: Carpal Tunnel [id number] at [facility] Oncologic Surgical History: Reports: None Social & Family History - Caffeine Use Caffeine Use: Reports: Coffee, Energy Drinks, Soda, Tea ED ROS GENERAL - Review of Systems Review Of Systems: See Below Constitutional: Denies: Fever, Chills, Weakness, Diaphoresis HEENT: Denies: Rhinitis, Throat Pain, Throat Swelling Respiratory: Denies: Shortness of Breath, Cough, Sputum Cardiovascular: Reports: Chest Pain, Blood Pressure Problem. Denies: Dyspnea on Exertion, Lightheadedness Endocrine: Denies: Fatigue GI/Abdominal: Denies: Abdominal Pain, Nausea, Vomiting : Denies: Flank Pain, Urgency Musculoskeletal: Denies: Joint Pain, Joint Swelling Skin: Reports: Bruising. Denies: Pruritis, Rash, Erythema Neurological: Denies: Confusion, Dizziness ED EXAM, GENERAL - Physical Exam Exam: See Below Exam Limited By: No Limitations General Appearance: Alert, WD/WN, No Apparent Distress Eye Exam: Bilateral Eye: EOMI, PERRL Ears: Normal External Exam, Normal Canal, Hearing Grossly Normal, Normal TMs Ear Exam: Bilateral Ear: Auricle Normal, Canal Normal, TM normal Nose: Normal Inspection, Normal Mucosa, No Blood Throat/Mouth: Normal Inspection, Normal Lips, Normal Teeth, Normal Gums, Normal Oropharynx, Normal Voice, No Airway Compromise Head: Atraumatic, Normocephalic Neck: Normal Inspection, Supple, Non-Tender, Full Range of Motion Respiratory/Chest: No Respiratory Distress, Lungs Clear, Normal Breath Sounds, No Accessory Muscle Use, Chest Non-Tender Cardiovascular: Normal Peripheral Pulses, Regular Rate, Rhythm, No Edema, No Gallop, No JVD, No Murmur, No Rub Peripheral Pulses: 2+: Carotid (L), Carotid (R), Radial (L), Radial (R) GI/Abdominal: Normal Bowel Sounds, Soft, Non-Tender, No Organomegaly, No Distention, No Abnormal Bruit, No Mass Extremities: Normal Inspection, Normal Range of Motion, Non-Tender, Normal Capillary Refill, No Pedal Edema Neurological: Alert, Oriented, CN II-XII Intact, Normal Cognition, Normal Gait, Normal Reflexes, No Motor/Sensory Deficits Skin Exam: Warm, Intact, Other (right lower extremity: there are old bluish green skin brusing over the lateral aspect of the left thigh and leg. Non tender. no hematoma felt. Right lower extremity: there is superficail skin brusing over the lower leg, non tender.) EKG INTERPRETATION EKG Date: 08/11/17 Rhythm: NSR [place]: Normal P-Wave: Present QRS: Normal ST-T: Normal QT: Normal Course - Vital Signs Text/Narrative:: Pt's clinical exam is normal, other than old skin bruising over the lower extremities. Her EKG is in NSR. Cardiac monitoring show regular rhythm in 70s. Pt is very happy and making jokes about old age in the emergency room. Her Blood pressure is slightly elevated, and that is because she has not refilled her clonidine and stopped taking it. Her CBC is normal, ETO is negative.CMP shows mild drop in sodium to 129 and her torponin is negative. She is not in any distress. Her chest pain appears nonspecific and has been going on since 10 PM yesterday and does not get worse with exertion. Her BP is slightly elevated at 160/84mmhg.. Pt reassured. Her clonidine 0.2mg daily was restarted and advised to monitor her blood pressure closely. Followup in clinic for further workup. Also she has been drinking OTC cough syrup a lot. Advised to stop doping that, as that can rise her blood pressure and cause problems.Pt says she knows her heart is fine, she is asking for xanax or ativan for sleep. I have told her that they are not sleep aid. She could talk to her psychiatrist during her next week appointment with him for a better sleep aid. Last Recorded V/S: Last Vital Signs Temp 98.4 F 08/11/17 04:00 Pulse 85 08/11/17 04:00 Resp 16 08/11/17 04:00 BP 164/86 H 08/11/17 04:00 Pulse Ox 100 08/11/17 04:00 - Orders/Labs/Meds Orders: Active Orders 24 hr Category Date Time Status EKG Documentation Completion [RC] ASDIRECTED Care 08/11/17 04:15 Ordered COMPREHENSIVE METABOLIC PN,CMP [CHEM] Stat Lab 08/11/17 04:03 Ordered ETOH [ETHANOL BLOOD MEDICAL] [CHEM] Stat Lab 08/11/17 04:03 Ordered Labs: Laboratory Tests 08/11/17 08/11/17 Range/Units 04:10 04:10 WBC 8.0 (4.0-11.0) K/uL RBC 3.92 (3.80-5.80) M/uL Hgb 11.3 L (11.5-16.5) g/dL Hct 33.6 L (37.0-47.0) % MCV 86 (76-96) fL MCH 28.8 (27.0-32.0) pg MCHC 33.6 (31.0-35.0) g/dL RDW 12.4 (11.0-16.0) % Plt Count 339 (150-500) K/uL MPV 7.9 (6.0-10.0) fL Neut % (Auto) 64.1 (45.0-70.0) % Lymph % (Auto) 21.7 (20.0-40.0) % [place] % (Auto) 10.0 (3.0-10.0) % Eos % (Auto) 3.8 (1.0-5.0) % Baso % (Auto) 0.4 (0.0-0.5) % Neut # (Auto) 5.13 (2.00-7.50) K/uL Lymph # (Auto) 1.73 (1.50-4.00) K/uL [place] # (Auto) 0.80 (0.20-0.80) K/uL Eos # (Auto) 0.30 (0.04-0.40) K/uL Baso # (Auto) 0.03 (0.02-0.10) K/uL Troponin I < 0.017 (0.000-0.060) ng/mL Departure - Departure Time of Disposition: 05:00 Disposition: Home, Self-Care 01 Condition: Good Clinical Impression: Non-cardiac chest pain, Elevated blood pressure reading - Discharge Information Forms: ED Department Discharge - Problem List Review Problem List Initiated/Reviewed/Updated: Yes - My Orders Last 24 Hours: My Active Orders 08/11/17 04:03 COMPREHENSIVE METABOLIC PN,CMP [CHEM] Stat ETOH [ETHANOL BLOOD MEDICAL] [CHEM] Stat 08/11/17 04:15 EKG Documentation Completion [RC] ASDIRECTED - Assessment/Plan Last 24 Hours: My Active Orders 08/11/17 04:03 COMPREHENSIVE METABOLIC PN,CMP [CHEM] Stat ETOH [ETHANOL BLOOD MEDICAL] [CHEM] Stat 08/11/17 04:15 EKG Documentation Completion [RC] ASDIRECTED Assessment:: Non cardiac chest pain elevated blood pressure Plan: Pt's clinical exam is normal, other than old skin bruising over the lower extremities. Her EKG is in NSR. Cardiac monitoring show regular rhythm in 70s. Pt is very happy and making jokes about old age in the emergency room. Her Blood pressure is slightly elevated, and that is because she has not refilled her clonidine and stopped taking it. Her CBC is normal, ETO is negative.CMP shows mild drop in sodium to 129 and her torponin is negative. She is not in any distress. Her chest pain appears nonspecific and has been going on since 10 PM yesterday and does not get worse with exertion. Her BP is slightly elevated at 160/84mmhg.. Pt reassured. Her clonidine 0.2mg daily was restarted and advised to monitor her blood pressure closely. Followup in clinic for further workup next week.. Also she has been drinking OTC cough syrup a lot. Advised to stop doping that, as that can rise her blood pressure and cause problems.Pt says she knows her heart is fine, she is asking for xanax or ativan for sleep. I have told her that they are not sleep aid. She could talk to her psychiatrist during her next week appointment with him for a better sleep aid.
[2017-08-11] MEDS ORDERED: cloNIDine 0.1 MG Tab PO ONE (04:45)
[2017-08-11 05:41] VITALS: BP 155/85
== END 2017-08-11 04:55 | disposition home or self-care (01) ==
LOC: LB.ED 03:35
DX: R07.89 Other chest pain (principal); R03.0 Elevated blood-pressure reading, without diagnosis of hypertension; Z79.899 Other long term (current) drug therapy
CPT/HCPCS: 36415; 80053; 84484; 85025; 93005; 99283-25; A0425; A0429; A9270-GY; G0480

== ENCOUNTER 2018-09-24 13:35 | Emergency (ER) | payer MEDICAID ==
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
[2018-09-24] MEDS ORDERED: D5%-0.9% NaCl w/ KCl 40 meq 1,000 ML IV SCH (14:45)
[2018-09-24] MEDS: Dextrose 5%-0.9% NaCl with KCl 1,000 ML IV SCH (15:00)
[2018-09-24] MEDS: LORazepam 2 MG/ML SDV IVPUSH ONE (15:00)
== END 2018-09-24 16:05 | disposition home or self-care (01) ==
LOC: LB.ED 13:35
DX: E87.1 Hypo-osmolality and hyponatremia (principal); D53.8 Other specified nutritional anemias; F10.20 Alcohol dependence, uncomplicated; I10 Essential (primary) hypertension; M19.90 Unspecified osteoarthritis, unspecified site; F41.9 Anxiety disorder, unspecified; F32.9 Major depressive disorder, single episode, unspecified; E66.9 Obesity, unspecified; Z79.899 Other long term (current) drug therapy; Y90.4 Blood alcohol level of 80-99 mg/100 ml
CPT/HCPCS: 36415; 80053; 80307; 81003; 85025; 93005; 96374; 99283-25; A0425; A0429; G0480; J2060; J3480

== ENCOUNTER 2018-12-15 01:20 | Emergency (ER) | payer MEDICAID ==
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
[2018-12-15] MEDS ORDERED: Sodium Chloride 0.9% 1,000 ML IV SCH (03:15)
[2018-12-15] MEDS ORDERED: Zolpidem 5 MG Tab PO ONE (04:20)
== END 2018-12-15 05:00 ==
LOC: EEVIPCON 01:20 → LB.ED 01:20
DX: T50.992A Poisoning by other drugs, medicaments and biological substances, intentional self-harm, initial encounter (principal); F32.9 Major depressive disorder, single episode, unspecified; I10 Essential (primary) hypertension; J44.9 Chronic obstructive pulmonary disease, unspecified; M19.90 Unspecified osteoarthritis, unspecified site; F41.0 Panic disorder [episodic paroxysmal anxiety]; E66.9 Obesity, unspecified; Z68.34 Body mass index [BMI] 34.0-34.9, adult; F17.210 Nicotine dependence, cigarettes, uncomplicated; Z79.899 Other long term (current) drug therapy
CPT/HCPCS: 36415; 80053; 80307; 81003; 84443; 85025; 96360; 99285-25; A0425; A0429; A9270-GY; G0480; J7030

== ENCOUNTER 2019-01-04 10:40 | Emergency (ER) | payer MEDICAID ==
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
[2019-01-04] MEDS ORDERED: Sodium Chloride 0.9% 10 ML Syringe FLUSH PRN (10:52)
[2019-01-04] MEDS ORDERED: Sodium Chloride 0.9% 1,000 ML IV SCH (11:00)
== END 2019-01-04 12:36 | disposition home or self-care (01) ==
LOC: LB.ED 10:40
DX: E86.0 Dehydration (principal); I10 Essential (primary) hypertension; J44.9 Chronic obstructive pulmonary disease, unspecified; F41.9 Anxiety disorder, unspecified; F32.9 Major depressive disorder, single episode, unspecified; Z79.899 Other long term (current) drug therapy
CPT/HCPCS: 36415; 80048; 81003; 85025; 99284; J7030

== ENCOUNTER 2019-01-15 11:05 | Emergency (ER) | payer MEDICAID ==
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
[2019-01-15] MEDS ORDERED: Sodium Chloride 0.9% 1,000 ML IV SCH (11:45)
== END 2019-01-15 13:36 | disposition home or self-care (01) ==
LOC: LB.ED 11:05
DX: N32.89 Other specified disorders of bladder (principal); E86.0 Dehydration; E66.9 Obesity, unspecified; I10 Essential (primary) hypertension; J44.9 Chronic obstructive pulmonary disease, unspecified; F31.9 Bipolar disorder, unspecified; Z68.35 Body mass index [BMI] 35.0-35.9, adult; Z79.899 Other long term (current) drug therapy
CPT/HCPCS: 36415; 80048; 81001; 85025; 96360; 96361; 99283-25; J7030

== ENCOUNTER 2019-01-31 13:12 | Emergency (ER) | payer MEDICAID ==
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
== END 2019-01-31 15:05 | disposition home or self-care (01) ==
LOC: LB.ED 13:12
DX: R53.1 Weakness (principal); I10 Essential (primary) hypertension; J44.9 Chronic obstructive pulmonary disease, unspecified; E66.9 Obesity, unspecified; F41.9 Anxiety disorder, unspecified; F32.9 Major depressive disorder, single episode, unspecified; Z68.34 Body mass index [BMI] 34.0-34.9, adult; Z79.899 Other long term (current) drug therapy
CPT/HCPCS: 36415; 80053; 82607; 83735; 85025; 99284; G0480

== ENCOUNTER 2019-04-27 18:08 | Emergency (ER) | payer MEDICAID ==
[2019-04-27] MEDS ORDERED: Indomethacin 25 MG Cap PO ONE (18:54)
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
[2019-04-27] MEDS ORDERED: SUMAtriptan 6 MG/0.5 ML SDV SUBCUT ONE (19:55)
[2019-04-27] MEDS ORDERED: SUMAtriptan 6 MG/0.5 ML SDV ONE (19:58)
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
== END 2019-04-27 20:16 | disposition home or self-care (01) ==
LOC: LB.ED 18:08
DX: R51 Headache (principal); I10 Essential (primary) hypertension; J44.9 Chronic obstructive pulmonary disease, unspecified; E66.9 Obesity, unspecified; F32.9 Major depressive disorder, single episode, unspecified; F17.210 Nicotine dependence, cigarettes, uncomplicated; Z79.899 Other long term (current) drug therapy; Z68.36 Body mass index [BMI] 36.0-36.9, adult
CPT/HCPCS: 70450; 72125; 96372; 99282; 99284-25; A9270-GY; J3030

== ENCOUNTER 2019-08-02 23:07 | Emergency (ER) | payer MEDICAID ==
[~2019-08-02 23:07] MED LIST changes: -Metoclopramide 10 MG/2 ML SDV IV PRN; +Omeprazole 20 MG Cap.CR ONE; -Sodium Chloride 0.9% 1,000 ML IV SCH
[2019-08-02] MEDS ORDERED: GI Cocktail Oral Solution 30 ML PO ONE (23:39)
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
== END 2019-08-02 23:55 | disposition home or self-care (01) ==
LOC: LB.ED 23:07
DX: R10.13 Epigastric pain (principal); I10 Essential (primary) hypertension; J44.9 Chronic obstructive pulmonary disease, unspecified; E66.9 Obesity, unspecified; F31.9 Bipolar disorder, unspecified; F41.9 Anxiety disorder, unspecified; M19.90 Unspecified osteoarthritis, unspecified site; Z79.899 Other long term (current) drug therapy
CPT/HCPCS: 99282; 99283; A9270-GY

== ENCOUNTER 2019-10-06 07:38 | Observation (INO) | payer MEDICAID ==
[2019-10-06] MEDS: Sodium Chloride 0.9% 1,000 ML IV ONE ×3 (08:35→20:00)
[2019-10-06] MEDS ORDERED: Sodium Chloride 0.9% 10 ML Syringe FLUSH PRN (09:48)
[2019-10-06] MEDS ORDERED: Thiamine 100 MG in Sodium Chloride 0.9% 100 ML IV ONE (09:50)
[2019-10-06] MEDS ORDERED: Sodium Chloride 0.9% 1,000 ML IV SCH (10:00)
[2019-10-06] MEDS: Nicotine 7 MG/24 Hr Patch ONE ×2 (10:10→10:14)
[2019-10-06] MEDS: Nicotine 7 MG/24 Hr Patch TRDERM SCH (10:13)
[2019-10-06] MEDS ORDERED: PARoxetine 20 MG Tab ONE (11:24)
[2019-10-06] MEDS ORDERED: Metoprolol Tartrate 50 MG Tab ONE (11:25)
[2019-10-06] MEDS ORDERED: Omeprazole 20 MG Cap.CR ONE (11:26)
[2019-10-06] MEDS ORDERED: Metoprolol Succinate 50 MG Tab.ER PO ONE (11:42)
[2019-10-06] MEDS ORDERED: OXcarbazepine 150 MG Tab PO SCH ×2 (11:43→12:15)
[2019-10-06] MEDS ORDERED: PARoxetine 20 MG Tab PO ONE (11:47)
[2019-10-06] MEDS: Ondansetron 4 MG/2 ML SDV IVPUSH PRN (11:55)
[2019-10-06] MEDS ORDERED: Ondansetron 4 MG/2 ML SDV ONE (11:59)
[2019-10-06] MEDS ORDERED: MVI, Adult with Vitamin K 10 ML, Thiamine 100 MG in Sodium Chloride 0.9% 1,000 ML IV ONE ×3 (12:23)
[2019-10-06] MEDS ORDERED: Diazepam 5 MG Tab PO ONE (12:23)
[2019-10-06] MEDS: LORazepam 1 MG Tab PO SCH ×4 (12:40→18:40)
[2019-10-06] MEDS ORDERED: LORazepam 2 MG/ML SDV ONE (12:42)
[2019-10-06] MEDS ORDERED: Diazepam 5 MG Tab ONE (12:50)
[2019-10-06] MEDS ORDERED: Docusate Sodium 100 MG Cap PO PRN (15:30)
[2019-10-06] MEDS ORDERED: Docusate Sodium 100 MG Cap**OWN MED PO PRN (16:42)
[2019-10-06] MEDS: SODIUM CHLORIDE 1 GM PO SCH (18:25)
[2019-10-06] MEDS: DOXEPIN 25 MG PO SCH (19:20)
[2019-10-06] MEDS: HALOPERIDOL 5 MG PO SCH (19:20)
[2019-10-06] MEDS: CLONIDINE 0.3 MG PO SCH (19:20)
[2019-10-07] MEDS: Ondansetron 4 MG/2 ML SDV IVPUSH PRN ×2 (05:15→13:10)
[2019-10-07] MEDS: Omeprazole 20 MG Cap.CR**OWN MED PO SCH (06:23)
--- NOTE | 2019-10-07 07:18 | HP ---
REASON FOR EMERGENCY ROOM VISIT: Alcoholism. HISTORY: This 43-year-old self-admitted alcoholic, came to the emergency room today in a tearful state asking for help with her alcoholism. When she arrived, she had the odor of alcohol on her breath. She was somewhat weepy and tearful and states that she has been drinking daily for 111 days since the passing of her mother. She states that she drinks 1 quart of vodka and several beers per day. She denies any loss of consciousness, nausea, or vomiting at this time. She similarly denies any suicidal ideation and states that she very much wants to get help with her alcohol problem. It is noteworthy that by her medical record, she has abused alcohol since her early teens and she has had several inpatient treatment stays for her alcohol abuse. PAST MEDICAL HISTORY: Her past medical history is quite extensive for her age, particularly please review her EMR. It includes the following, 1. Alcohol abuse, chronic. 2. Several inpatient treatment stays for alcohol detox and treatment. 3. History of suicidal ideation and previous overdose. 4. History of depression. 5. Bipolar disorder. 6. COPD. 7. Hypertension. 8. History of GI bleed. 9. History of cholelithiasis. 10.Concussion. 11.Obesity. 12.History of bariatric surgery. MEDICATIONS: Include the following; vitamins, ferrous sulfate, haloperidol, clonidine, sodium chloride tablets, omeprazole, metoprolol, doxepin, docusate, paroxetine, fluconazole, and oxcarbazepine. Please see EMR for dosages. ALLERGIES: NONE TO MEDICATIONS. SOCIAL HISTORY: She is a smoker. Her alcohol use is outlined as above. REVIEW OF SYSTEMS: Pertinent positives and negatives as listed in the HPI. PHYSICAL EXAMINATION: GENERAL: She is tearful, but answers questions appropriately. She does have the odor of alcohol on her breath. VITAL SIGNS: She is afebrile. Pulse rate is 113, blood pressure 155/85, respiratory rate 20, O2 sats 99% on room air. HEENT: She has no scleral icterus. Oropharynx is normal. NECK: Supple. No adenopathy. No JVD. CHEST: She does have some scattered rhonchi. No wheezes could be heard. CARDIAC: Regular rate without murmur or rub. ABDOMEN: Soft and nontender at this time. No ascites is detectable. No hepatosplenomegaly. EXTREMITIES: Normal pulses. No edema. NEUROLOGIC: She moves all 4 extremities. There is no asterixis or tremor noted at this time. Cranial nerves 2 through 12 are intact. There is no numbness to crude touch. LABORATORY DATA: Her CBC is unremarkable with a WBC of 7000 and a hemoglobin of 12.4. Her platelet count is 214,000. Her CMP shows that she has normal electrolytes including sodium at this time. Her renal function is normal. She has a calcium 7.7, but her albumin is low at 3.2. She has a slight mild elevation of AST at 48. The rest of her liver enzymes including ALT, alkaline phosphatase, and bilirubin are all normal. Her TSH is 2.173. Urine screen was performed, it was positive for tricyclics, but negative for everything else. Her blood alcohol level of 280 mg/dL that was 4 hours ago. Her chest x-ray shows no active pulmonary disease. Her EKG is normal sinus rhythm without acute changes. Her magnesium level was normal at 1.8. IMPRESSION: Alcoholism with acute intoxication and desire to pursue treatment. EMERGENCY ROOM COURSE: In spite of our best efforts to try to get placement throughout the area and including the [facility], we were unsuccessful as they had no openings available. It was therefore decided that we would admit her under observation and begin treating her for alcohol withdrawal. She was given 1 mg of Ativan IV. A banana bag was hung. She also received prior to this 1 L of normal saline. She was given thiamine at 100 mg IV. She will be admitted and kept on alcohol withdrawal protocol and observed. She understands and agrees with this plan. MOHIT RAUL
[2019-10-07] MEDS: Nicotine 7 MG/24 Hr Patch TRDERM SCH (08:32)
[2019-10-07] MEDS: Acetaminophen 500 MG Tab PO PRN ×2 (08:32→18:11)
[2019-10-07] MEDS: Metoprolol Succinate 50 MG Tab.ER**OWN MED PO SCH (08:33)
[2019-10-07] MEDS: SODIUM CHLORIDE 1 GM PO SCH ×3 (08:34→17:58)
[2019-10-07] MEDS: PAROXETINE PO SCH (08:34)
[2019-10-07] MEDS: Ferrous Sulfate 325 MG Tab**OWN MED PO SCH (08:35)
[2019-10-07] MEDS: LORazepam 1 MG Tab PO SCH ×5 (08:36→22:01)
[2019-10-07] MEDS: Cyanocobalamin (Vitamin B12) 1,000 MCG Tab**OWN MED PO SCH (08:36)
[2019-10-07] MEDS: HALOPERIDOL 5 MG PO SCH ×2 (09:19→20:03)
--- NOTE | 2019-10-07 11:28 | CR ---
DATE OF SERVICE: 10/06/19 CLINICAL DATA: rhonchi PA AND LATERAL CHEST: Comparison is made to a prior exam dated 10/04/16. The heart size is normal. The lungs are clear. No pneumothorax. No pleural effusions. No evidence of acute intrathoracic disease. [id number] [facility]
[2019-10-07] MEDS ORDERED: Ketorolac 30 MG/ML SDV IM ONE (12:45)
[2019-10-07] MEDS: CLONIDINE 0.3 MG PO SCH (20:04)
[2019-10-07] MEDS: DOXEPIN 25 MG PO SCH (20:04)
[2019-10-08] MEDS: LORazepam 1 MG Tab PO SCH (02:16)
[2019-10-08] MEDS: Acetaminophen 500 MG Tab PO PRN (02:17)
[2019-10-08] MEDS: Omeprazole 20 MG Cap.CR**OWN MED PO SCH (07:12)
[2019-10-08] MEDS: Ferrous Sulfate 325 MG Tab**OWN MED PO SCH (08:21)
[2019-10-08] MEDS: Metoprolol Succinate 50 MG Tab.ER**OWN MED PO SCH (08:21)
[2019-10-08] MEDS: HALOPERIDOL 5 MG PO SCH (08:21)
[2019-10-08] MEDS: Nicotine 7 MG/24 Hr Patch TRDERM SCH (08:21)
[2019-10-08] MEDS: SODIUM CHLORIDE 1 GM PO SCH (08:21)
[2019-10-08] MEDS: Cyanocobalamin (Vitamin B12) 1,000 MCG Tab**OWN MED PO SCH (08:22)
[2019-10-08] MEDS: PAROXETINE PO SCH (09:42)
--- NOTE | 2019-10-08 12:06 | PCM.DCSUM1 ---
Discharge Summary - Hospital Course Free Text/Narrative:: Patient admitted over the weekend for alcohol abuse and detox. She was given ativan over the weekend and last ativan was given at 2 am this morning. CIWA score is 0. Will discharge home with information of alcohol rehab facilities. We are unable to find placement for her, but she is medically cleared. Patient understands. She denies any hallucinations, suicidal/homicidal ideations, N/V/D, dizziness, headache, abdominal pain, chest pain, SOB. Diagnosis: Stroke: No Modified Sauk Scale: No Symptoms at All Modified Sauk Scale Score: 0 - Discharge Data Discharge Date: 10/08/19 Discharge Disposition: Home, Self-Care 01 Condition: Good - Referral to Home Health Primary Care Physician: PCP None - Discharge Diagnosis/Problem(s) (1) ETOH abuse SNOMED Code(s): 54338464 ICD Code: F10.10 - ALCOHOL ABUSE, UNCOMPLICATED Status: Acute Current Visit: Yes (2) ETOH abuse SNOMED Code(s): 69683245 ICD Code: F10.10 - ALCOHOL ABUSE, UNCOMPLICATED Status: Acute Priority: High Current Visit: Yes - Patient Instructions Diet: Usual Diet as Tolerated Activity: As Tolerated Driving: May Drive Today Showering/Bathing: May Shower Notify Provider of: Fever, Increased Pain, Nausea and/or Vomiting - Discharge Plan *PRESCRIPTION DRUG MONITORING PROGRAM REVIEWED*: Not Applicable *COPY OF PRESCRIPTION DRUG MONITORING REPORT IN PATIENT PENG: Not Applicable Home Medications: Home Meds PARoxetine [Paxil] 50 mg PO DAILY 11/11/13 [History] cloNIDine [Catapres] 0.3 mg PO BEDTIME 09/24/18 [History] Docusate Sodium [Dok] 1 cap PO BID PRN 12/15/18 [History] haloperidoL [Haldol] 2.5 tab PO BID 12/15/18 [History] Cyanocobalamin (Vitamin B-12) [Vitamin B-12] 1,000 mcg PO DAILY 10/06/19 [History] Doxepin [SINEquan] 50 mg PO BEDTIME 10/06/19 [History] Ferrous Sulfate 325 mg PO DAILY 10/06/19 [History] Fluconazole [Diflucan] 100 mg PO DAILY PRN 10/06/19 [History] Metoprolol Succinate 50 mg PO DAILY 10/06/19 [History] OXcarbazepine [Trileptal] 300 mg PO BID 10/06/19 [History] Omeprazole 20 mg PO DAILY 10/06/19 [History] Sodium Chloride 2 gm PO TID 10/06/19 [History] - Discharge Summary/Plan Comment DC Time >30 min.: No Discharge Summary/Plan Comment: Social work and staff will help patient with a ride and give her information for alcohol rehab facilities - Patient Data Vitals - Most Recent: Last Vital Signs Temp 36.7 C 10/08/19 07:41 Pulse 68 10/08/19 08:21 Resp 16 10/08/19 07:41 BP 136/80 10/08/19 08:21 Pulse Ox 100 10/08/19 07:41 Weight - Most Recent: 91.172 kg I&O - Last 24 hours: Intake & Output 10/07/19 10/08/19 10/08/19 22:59 06:59 14:59 Intake Total 3200 Balance 3200 Med Orders - Current: Current Medications Acetaminophen (Tylenol Extra Strength) 1,000 mg PO Q4H PRN PRN Reason: Pain (moderate 4-6) Last Admin: 10/08/19 02:17 Dose: 1,000 mg Documented by: Cyanocobalamin (Vitamin B12) 1,000 mcg PO DAILY [facility] Last Admin: 10/08/19 08:22 Dose: 1,000 mcg Documented by: Docusate Sodium (Colace) 100 mg PO BID PRN PRN Reason: constipation Last Admin: 10/07/19 17:59 Dose: 100 mg Documented by: Ferrous Sulfate (Ferrous Sulfate) 325 mg PO DAILY [facility] Last Admin: 10/08/19 08:21 Dose: 325 mg Documented by: Lorazepam (Ativan) 0 mg PO ASDIRECTED [facility]; Protocol Last Admin: 10/08/19 02:16 Dose: 1 mg Documented by: Metoprolol Succinate (Toprol Xl) 50 mg PO DAILY [facility] Last Admin: 10/08/19 08:21 Dose: 50 mg Documented by: Nicotine (Habitrol) 7 mg TRDERM DAILY [facility] Last Admin: 10/08/19 08:21 Dose: 7 mg Documented by: Clonidine [Catapres] (0.3 MgOwn Med) 0.3 mg PO BEDTIME [facility] Last Admin: 10/07/19 20:04 Dose: 0.3 mg Documented by: Doxepin [Sinequan] (25 MgOwn Med) 50 mg PO BEDTIME [facility] Last Admin: 10/07/19 20:04 Dose: 50 mg Documented by: Haloperidol [Haldol] (5mgOwn Med) 2.5 tab PO BID [facility] Last Admin: 10/08/19 08:21 Dose: 2.5 tab Documented by: Paroxetine [Paxil] (50 MgOwn Med) 50 mg PO DAILY [facility] Last Admin: 10/08/19 09:42 Dose: 50 mg Documented by: Omeprazole (Omeprazole) 20 mg PO ACBREAKFAST [facility] Last Admin: 10/08/19 07:12 Dose: 20 mg Documented by: Ondansetron HCl (Zofran) 4 mg IVPUSH Q4H PRN PRN Reason: Nausea/Vomiting Last Admin: 10/07/19 13:10 Dose: 4 mg Documented by: Sodium Chloride (Saline Flush) 10 ml FLUSH ASDIRECTED PRN PRN Reason: Keep Vein Open Last Admin: 10/07/19 07:17 Dose: 10 ml Documented by: Sodium Chloride (Sodium Chloride) 2 gm PO TID@0800,1200,1800 [facility] Last Admin: 10/08/19 08:21 Dose: 2 gm Documented by: Discontinued Medications Diazepam (Valium.) 5 mg PO ONETIME ONE Stop: 10/06/19 12:24 Last Admin: 10/06/19 12:42 Dose: 5 mg Documented by: Diazepam (Valium.) Confirm Administered Dose 5 mg .ROUTE .STK-MED ONE Stop: 10/06/19 12:51 Last Admin: 10/06/19 12:59 Dose: Not Given Documented by: Docusate Sodium (Colace) 100 mg PO BID PRN PRN Reason: constipation Sodium Chloride (Normal Saline) 1,000 mls @ 999 drops/hr IV .BOLUS ONE Stop: 10/07/19 00:47 Last Admin: 10/06/19 20:00 Dose: 100 drops/hr Documented by: Thiamine HCl 100 mg/ Sodium (Chloride) 101 mls @ 202 mls/hr IV ONETIME ONE Stop: 10/06/19 09:51 Last Admin: 10/06/19 10:05 Dose: 202 mls/hr Documented by: Sodium Chloride (Normal Saline) 1,000 mls @ 100 mls/hr IV ASDIRECTED [facility] Multivitamins/Minerals 10 ml/Thiamine HCl 100 mg/ Sodium Chloride 1,011 mls @ 100 mls/hr IV ONETIME ONE Stop: 10/06/19 22:29 Last Admin: 10/06/19 12:57 Dose: 100 mls/hr Documented by: Ketorolac Tromethamine (Toradol) 30 mg IM ONETIME ONE Stop: 10/07/19 12:46 Last Admin: 10/07/19 13:14 Dose: 30 mg Documented by: Lorazepam (Ativan) Confirm Administered Dose 2 mg .ROUTE .STK-MED ONE Stop: 10/06/19 12:43 Last Admin: 10/06/19 12:37 Dose: Not Given Documented by: Metoprolol Succinate (Toprol Xl) 50 mg PO ONETIME ONE Stop: 10/06/19 11:43 Last Admin: 10/06/19 11:54 Dose: 50 mg Documented by: Metoprolol Tartrate (Lopressor) Confirm Administered Dose 50 mg .ROUTE .STK-MED ONE Stop: 10/06/19 11:26 Last Admin: 10/06/19 12:12 Dose: Not Given Documented by: Nicotine (Habitrol) Confirm Administered Dose 7 mg .ROUTE .STK-MED ONE Stop: 10/06/19 10:00 Last Admin: 10/06/19 10:14 Dose: Not Given Documented by: Omeprazole (Omeprazole) Confirm Administered Dose 20 mg .ROUTE .STK-MED ONE Stop: 10/06/19 11:27 Last Admin: 10/06/19 12:00 Dose: Not Given Documented by: Ondansetron HCl (Zofran) Confirm Administered Dose 4 mg .ROUTE .STK-MED ONE Stop: 10/06/19 12:00 Last Admin: 10/06/19 12:12 Dose: Not Given Documented by: Oxcarbazepine (Trileptal) 300 mg PO BID [facility] Last Admin: 10/06/19 11:48 Dose: 900 mg Documented by: Oxcarbazepine (Trileptal) 900 mg PO BID [facility] Last Admin: 10/06/19 12:12 Dose: Not Given Documented by: Paroxetine HCl (Paxil) Confirm Administered Dose 60 mg .ROUTE .STK-MED ONE Stop: 10/06/19 11:25 Last Admin: 10/06/19 12:00 Dose: Not Given Documented by: Paroxetine HCl (Paxil) 50 mg PO ONETIME ONE Stop: 10/06/19 11:48 Last Admin: 10/06/19 12:10 Dose: 50 mg Documented by:
[2019-10-08 12:43] VITALS: BP 145/73; PULSE 65
--- NOTE | 2019-10-09 11:26 | PN ---
DATE OF VISIT: 10/07/2019 SUBJECTIVE: Maribel is much better emotionally since admission yesterday. Obviously, she is more sober now and although she states she still feels shaky, complains of a headache, some abdominal pain, and leg pain, overall she is much better. She is eating this morning. There have been no reports of hallucinations. She was quite agitated yesterday and was admitted and placed under alcohol withdrawal treatment protocol. OBJECTIVE: VITAL SIGNS: Her vital signs are stable. She is afebrile. Pulse rate was in the low 100s yesterday, it is 72 this morning. Her blood pressure is 153/76, respirations 16, O2 sats 93% on room air. HEENT: No scleral icterus. CHEST: She still has scattered rhonchi (chronic smoker). CARDIAC: Regular rate without murmur. ABDOMEN: Nondistended and is soft to palpation. No hepatosplenomegaly is noted. EXTREMITIES: No edema. [place] and warm. No cyanosis. NEUROLOGIC: She is alert and oriented x3. No shaking is observed. No asterixis is present. IMPRESSION: Stable. PLAN: Hopefully tomorrow we can continue with our efforts to get placement into an inpatient facility. She has failed countless attempts at inpatient treatment in the past. Therefore, I had a very long debbie discussion with her about where she is with her disease and the pathway to recovery. This included inpatient treatment to begin with, the establishment of a healthy support group, involvement in 12-step type of structure, and assistance of various professionals including Psychiatric Security Nurse, Psychiatry or Psychology, and so forth. I informed Maribel that she is actually in a surprisingly good position in the sense that she does readily admit that she has been an alcoholic ever since she was a teenager. She casts no doubt on that whatsoever. At this point, she feels hopeless and helpless, and this is also a very good starting point for her in realizing that she cannot do it alone. I also made it clear to her that there is no medication per se that is going to be the answer for her recovery in the snf. I emphasized her that she has an unusual disease that will always be telling her she does not have one and give her reasons to relapse. We did dwell upon this for quite some time and I cited several examples of how her illness will try to trick her. I made it clear to her that in my opinion, her alcoholism is ultimately going to be fatal and cut her life short without help, but that help was definitely a very valid and viable possibility. It is going to require a considerable amount of effort on her part and she should not depend upon others to provide solutions for her, rather they should be a support system for her. She understands all these. She also knows that I will not be here tomorrow and that Dr. Shane will be seeing her in my absence. All questions were answered. MOHIT /[id number]
== END 2019-10-08 12:55 | disposition home or self-care (01) ==
LOC: LB.ED 07:38 → LB.MS 13:29 → UNDOADMOB 16:33
PROVIDERS: ADMIT Surgery; ATTEND Surgery
DX: F10.229 Alcohol dependence with intoxication, unspecified (principal); F32.9 Major depressive disorder, single episode, unspecified; F17.200 Nicotine dependence, unspecified, uncomplicated; J44.9 Chronic obstructive pulmonary disease, unspecified; I10 Essential (primary) hypertension; E66.9 Obesity, unspecified; Z79.899 Other long term (current) drug therapy; Z68.34 Body mass index [BMI] 34.0-34.9, adult; Y90.0 Blood alcohol level of less than 20 mg/100 ml
CPT/HCPCS: 36415; 71046; 80053; 80307; 83735; 84443; 85025; 93005; A9270-GY; J1885; J2405; J3411; J7030; J7050

== ENCOUNTER 2020-03-13 10:42 | Observation (INO) | payer MEDICAID ==
[2020-03-13] MEDS ORDERED: LORazepam 2 MG/ML SDV IVPUSH ONE (11:18)
[2020-03-13] MEDS ORDERED: Sodium Chloride 0.9% 10 ML Syringe FLUSH PRN (11:18)
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
[2020-03-13] MEDS: Sodium Chloride 0.9% 1,000 ML IV ONE (12:25)
--- NOTE | 2020-03-13 13:11 | CT ---
DATE OF SERVICE: 03/13/2020 CLINICAL DATA: Fall Unenhanced brain CT: Comparison is made to a prior exam dated 23 November 2019. No masses or mass effect. No intracranial hemorrhage. No evidence of acute or subacute infarct. There is mild soft tissue swelling anterior to the frontal bone on the right. No fractures. Impression: No acute intracranial abnormalities. [facility]
--- NOTE | 2020-03-13 13:30 | PCM.SN.2 ---
- Free Text/Narrative Note: Patient admitted to [facility] inpatient for CIWWA and observation after fall.
[2020-03-13] MEDS ORDERED: Acetaminophen 325 MG Tab PO PRN (14:11)
[2020-03-13] MEDS ORDERED: Acetaminophen 325 MG Tab ONE (14:12)
== END 2020-03-13 14:40 | disposition left against medical advice (07) ==
LOC: LB.ED 10:42 → LB.MS 12:33
PROVIDERS: ADMIT Nurse Practitioner; ATTEND Nurse Practitioner
DX: R56.9 Unspecified convulsions (principal); F10.239 Alcohol dependence with withdrawal, unspecified; I10 Essential (primary) hypertension; S00.91XA Abrasion of unspecified part of head, initial encounter; J44.9 Chronic obstructive pulmonary disease, unspecified; G43.909 Migraine, unspecified, not intractable, without status migrainosus; E66.9 Obesity, unspecified; F41.9 Anxiety disorder, unspecified; F32.9 Major depressive disorder, single episode, unspecified; F42.9 Obsessive-compulsive disorder, unspecified; Z20.828 Contact with and (suspected) exposure to other viral communicable diseases; Z79.899 Other long term (current) drug therapy; Z98.890 Other specified postprocedural states; Z98.84 Bariatric surgery status
CPT/HCPCS: 36415; 70450; 80053; 80307; 85025; 93005; 99285-25; G0378; J7030; U0002

== ENCOUNTER 2020-04-19 11:40 | Emergency (ER) | payer MEDICAID ==
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
[2020-04-19] MEDS: Multivitamin, Childrens Tab.Chew PO STA (13:27)
== END 2020-04-19 15:26 | disposition home or self-care (01) ==
LOC: LB.ED 11:40
DX: F10.20 Alcohol dependence, uncomplicated (principal); I10 Essential (primary) hypertension; F19.10 Other psychoactive substance abuse, uncomplicated; E66.9 Obesity, unspecified; J44.9 Chronic obstructive pulmonary disease, unspecified; R56.9 Unspecified convulsions; Z79.899 Other long term (current) drug therapy
CPT/HCPCS: 36415; 80307; 99283; 99284; A9270-GY

== ENCOUNTER 2020-04-23 11:03 | Emergency (ER) | payer MEDICAID ==
[2020-04-23] MEDS ORDERED: Sodium Chloride 0.9% 1,000 ML IV ONE (11:34)
[2020-04-23] MEDS ORDERED: MVI, Adult with Vitamin K 10 ML, Thiamine 100 MG, Folic Acid 1 MG, Magnesium Sulfate 3 ... IV SCH ×5 (11:45)
--- NOTE | 2020-04-23 14:27 | CR ---
Date of Service: 04/23/20 Clinical Data: SOB AP CHEST: Comparison is made to a prior exam dated 10/06/19. The heart size is normal. The lungs are clear. No pneumothorax. No pleural effusions. No evidence of acute intrathoracic disease. [id number] [facility]
--- NOTE | 2020-04-23 19:13 | ER ---
HISTORY OF PRESENT ILLNESS: A 44-year-old lady who comes in with complaints of not feeling well since Tuesday. She has a long-term history of alcohol abuse. She tells me that she quit drinking alcohol on Tuesday, and Tuesday morning, she woke up not feeling well. She was shaky. She had chills, some shortness of breath issues, coughing, dizziness, even being a little forgetful. The patient tells me that she is worried about Wernicke's encephalitis because she has heard and knows of 1 or 2 other people who have had it with alcohol abuse. The patient has not been vomiting. She feels like she could have been running a fever, but she was not checking her temperature. She just felt chilled. PAST MEDICAL HISTORY: Include a lot of episodes of depression, drug abuse, alcohol abuse, suicidal tendencies. CURRENT MEDICATIONS: Sinequan, olanzapine, Dulcolax, omeprazole, Trileptal, Haldol, Catapres, metoprolol, ferrous sulfate, Paxil, Trulance, Neurontin, and ibuprofen. ALLERGIES: NONE KNOWN. OBJECTIVE: GENERAL APPEARANCE: The patient is awake and alert. She appears slightly pale, in no respiratory distress. VITAL SIGNS: Reviewed. She is afebrile, pulse of 78, blood pressure 149/93, respirations 18 and unlabored, O2 sats 99% on room air. HEENT: Eyes, pupils are slightly dilated. They are reactive to light and equal. The EOMs are intact. Ears, TMs, both have some yellow mucus behind them, it is slightly bulging, a little more so on the right side than the left. No redness and there is no cerumen occlusion. Oral mucous membranes moist. Tonsils not enlarged or injected. Pharynx not inflamed. NECK: Supple. LUNGS: Clear with slightly reduced air exchange throughout the lung cheng. I do not hear any rales, wheezes, or rhonchi. CARDIAC: Heart sounds distinct. S1, S2 present. Regular rate. No murmurs. ABDOMEN: Protuberant, nontender. With palpation, mostly, there are a couple places where she notes mild tenderness, but there is no guarding. Bowel sounds are present. SKIN: Warm and dry. LABORATORY DATA: CBC shows a normal white count of 9.9, hemoglobin of 11.1. A comprehensive metabolic panel shows a slightly low sodium of 135 as well, potassium of 3.3, BUN is 6, creatinine is 0.91, so she has good kidney function. Blood sugar is 101. Liver enzymes show an AST slightly elevated at 48. Albumin and globulin are also slightly up. A UA does show a urinary tract infection. ETOH is negative and a COVID test is negative. DIAGNOSIS: Alcohol abuse with withdrawal symptoms. I feel the patient is on the downward side of these symptoms. There is no active shaking, tremors, or sweating when she is able to be questioned on any of these. I will give her a liter of fluid with a banana bag mixed in spread out over 4 hours. We did monitor the patient here, and after receiving only the first part of the IV fluids, the patient states she is definitely feeling better. SECONDARY DIAGNOSIS: Urinary tract infection. I will start her on Bactrim DS 1 tablet b.i.d. for 7 days, and we will get a urine culture started as well. THIRD DIAGNOSIS: Hypokalemia: I will start her on K-Dur 10 mEq daily for 10 days for a mild hypokalemia. The patient is to follow up with Dr. Shane in the clinic sometime within the next few days, sooner is better and the patient is grateful. She is thankful for the assistance today and has no further questions. CRS/MODL /[id number] MTDD
== END 2020-04-23 16:05 | disposition home or self-care (01) ==
LOC: LB.ED 11:03
DX: N39.0 Urinary tract infection, site not specified (principal); E87.6 Hypokalemia; R68.83 Chills (without fever); R06.02 Shortness of breath; R05 Cough; R42 Dizziness and giddiness; Z20.822 Contact with and (suspected) exposure to COVID-19
CPT/HCPCS: 36415; 71045; 80053; 80307; 81001; 83735; 85025; 87086; 87088; 87186; 87635; 96365; 96366; 99285; J3411; J3475; J7030; J3490; U0002

== ENCOUNTER 2020-10-06 14:36 | Emergency (ER) | payer MEDICAID ==
[2020-10-06] MEDS: Ketorolac 30 MG/ML SDV IVPUSH ONE (14:50)
[2020-10-06] MEDS: HYDROmorphone 2 MG/ML SDV IVPUSH ONE ×2 (14:52→15:50)
--- NOTE | 2020-10-06 15:59 | CT ---
DATE OF SERVICE: 10/06/20 CLINICAL DATA: Abd pain ULQ Unenhanced abdomen and pelvic CT: Multislice acquisition through the abdomen and pelvis without IV or oral contrast was performed. No priors. The lung bases are clear. The heart size is normal. There are surgical changes involving the stomach and GE junction region consistent with a prior gastric bypass. The unenhanced liver appears normal. No focal hepatic lesions. The gallbladder is moderately distended. No calcified gallstones. No pericholecystic fluid. The spleen appears normal. The pancreas appears normal. The right and left adrenals appear normal. The right and left kidneys appear normal. No nephrocalcinosis or nephrolithiasis. No hydronephrosis or hydroureter. Bladder is partially fluid filled. It appears normal. There is a 4.3 cm oval-shaped fluid density structure within the right ovary and adnexa consistent with a right ovarian cyst. The uterus appears unremarkable. The the appendix is not dilated. No evidence of appendicitis. There are surgical changes within and anastomosis in the left mid abdomen. No dilated loops of bowel. No free air. No free fluid. No adenopathy. No aortic aneurysm. There is degenerative disc disease at multiple levels in the lower thoracic and lumbar spine. No other significant findings. Impression: 4.3 cm fluid density structure in the right ovary/adnexa consistent with a right ovarian cyst. Follow-up ultrasound is recommended to confirm resolution as cystic ovarian neoplasm should at least be considered. Other findings as discussed above. MTDD
[2020-10-06] MEDS: LORazepam 2 MG/ML SDV IVPUSH ONE (16:22)
[2020-10-06] MEDS ORDERED: LORazepam 2 MG/ML SDV ONE (16:33)
[2020-10-06] MEDS ORDERED: LORazepam 1 MG Tab ONE (17:00)
[2020-10-06] MEDS: HYDROmorphone 2 MG/ML SDV ONE (17:03)
[2020-10-06] MEDS: Ketorolac 30 MG/ML SDV ONE (17:05)
[2020-10-06] MEDS: LORazepam 1 MG Tab ONE (17:48)
[2020-10-06] MEDS ORDERED: Sodium Chloride 0.9% 10 ML Syringe FLUSH PRN (17:48)
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
== END 2020-10-06 17:37 | disposition home or self-care (01) ==
LOC: LB.ED 14:36
DX: R10.12 Left upper quadrant pain (principal); F41.9 Anxiety disorder, unspecified; F10.10 Alcohol abuse, uncomplicated; J44.9 Chronic obstructive pulmonary disease, unspecified; I10 Essential (primary) hypertension; E66.9 Obesity, unspecified; Z68.31 Body mass index [BMI] 31.0-31.9, adult; Z72.0 Tobacco use; Z79.899 Other long term (current) drug therapy; Y90.6 Blood alcohol level of 120-199 mg/100 ml
CPT/HCPCS: 36415; 74176; 80053; 80307; 81001; 83690; 85025; 96374; 96375; 99284; A9270; J1170; J1885; J2060

== ENCOUNTER 2020-11-08 22:08 | Emergency (ER) | payer MEDICAID ==
[2020-11-08] MEDS ORDERED: Amoxicillin 500 MG Cap ONE (23:00)
[2020-11-08] MEDS ORDERED: Bacitracin Oint 1 GM U/D Packet TOP ONE (23:29)
[2020-11-08] MEDS ORDERED: Diphtheria,Pertussis(Acell),Tetanus Vaccine 0.5 ML SDV IM ONE (23:29)
[2020-11-08] MEDS ORDERED: Lidocaine 1% with EPINEPHrine 1:100,000 20 ML MDV INJECT ONE (23:29)
[2020-11-08] MEDS ORDERED: Amoxicillin 500 MG Cap PO ONE (23:29)
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
--- NOTE | 2020-11-09 09:39 | CT ---
Date of Service: 11/08/20 Clinical Data: head injury UNENHANCED BRAIN CT: Multislice acquisition through the brain without IV contrast was performed. Comparison is made to a prior exam dated 03/13/20. No masses or mass effect. No intracranial hemorrhage. No evidence of acute or subacute infarct. No osseous abnormalities. IMPRESSION: No acute intracranial abnormalities. [id number] [facility]
== END 2020-11-09 00:14 | disposition home or self-care (01) ==
LOC: LB.ED 22:08
DX: S01.81XA Laceration without foreign body of other part of head, initial encounter (principal); F10.10 Alcohol abuse, uncomplicated; I10 Essential (primary) hypertension; J44.9 Chronic obstructive pulmonary disease, unspecified; E66.9 Obesity, unspecified; Z68.30 Body mass index [BMI] 30.0-30.9, adult; Z23 Encounter for immunization; Z79.899 Other long term (current) drug therapy; W01.198A Fall on same level from slipping, tripping and stumbling with subsequent striking against other object, initial encounter
CPT/HCPCS: 12014; 70450; 90471; 90715; 99284; A0425; A0429; A9270

== ENCOUNTER 2020-11-30 19:18 | Emergency (ER) | payer MEDICAID ==
[2020-11-30] MEDS ORDERED: LORazepam 2 MG/ML SDV IVPUSH ONE (19:28)
[2020-11-30] MEDS ORDERED: Ondansetron 4 MG/2 ML SDV IVPUSH ONE (19:28)
[2020-11-30] MEDS ORDERED: Sodium Chloride 0.9% 1,000 ML IV SCH (19:30)
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
[2020-11-30] MEDS ORDERED: MVI, Adult with Vitamin K 10 ML, Thiamine 100 MG, Folic Acid 1 MG, Magnesium Sulfate 3 ... IV SCH ×5 (19:45)
[2020-11-30] MEDS ORDERED: Ondansetron 4 MG/2 ML SDV ONE (19:45)
[2020-11-30] MEDS ORDERED: Ketorolac 60 MG/2 ML SDV IVPUSH ONE (20:30)
[2020-11-30] MEDS ORDERED: Ketorolac 30 MG/ML SDV ONE (20:48)
[2020-11-30] MEDS ORDERED: Nicotine 21 MG/24 Hr Patch TRDERM ONE (21:16)
[2020-11-30] MEDS ORDERED: Acetaminophen 500 MG Tab PO PRN (22:24)
[2020-11-30] MEDS ORDERED: Ketorolac 30 MG/ML SDV IVPUSH ONE (22:24)
[2020-11-30] MEDS ORDERED: Ondansetron 4 MG/2 ML SDV IVPUSH PRN (22:25)
[2020-11-30] MEDS: LORazepam 2 MG/ML SDV IVPUSH PRN (23:40)
[2020-12-01] MEDS: LORazepam 2 MG/ML SDV IVPUSH PRN (04:37)
[2020-12-01] MEDS ORDERED: LORazepam 1 MG Tab ONE ×2 (08:50→09:34)
[2020-12-01] MEDS ORDERED: LORazepam 1 MG Tab PO PRN (09:32)
== END 2020-12-01 09:50 | disposition home or self-care (01) ==
LOC: LB.ED 19:18
DX: F10.129 Alcohol abuse with intoxication, unspecified (principal); I10 Essential (primary) hypertension; J44.9 Chronic obstructive pulmonary disease, unspecified; M19.90 Unspecified osteoarthritis, unspecified site; E66.9 Obesity, unspecified; Z68.32 Body mass index [BMI] 32.0-32.9, adult; Y90.0 Blood alcohol level of less than 20 mg/100 ml; Z79.899 Other long term (current) drug therapy; Z20.822 Contact with and (suspected) exposure to COVID-19
CPT/HCPCS: 36415; 80053; 80307; 96365; 96366; 96375; 96376; 99284-25; A0425; A0429; A9270-GY; J1885; J2060; J2405; J3411; J3475; J3490; J7030; U0002

== ENCOUNTER 2021-08-10 10:14 | Emergency (ER) | payer MEDICAID ==
[2021-08-10 10:38] VITALS: BP 127/45; PULSE 65
== END 2021-08-10 11:36 | disposition home or self-care (01) ==
LOC: LB.ED 10:14
DX: G62.9 Polyneuropathy, unspecified (principal); J44.9 Chronic obstructive pulmonary disease, unspecified; I10 Essential (primary) hypertension; Z79.899 Other long term (current) drug therapy
CPT/HCPCS: 36415; 80053; 85025; 85379; 99282; 99283

== ENCOUNTER 2022-09-27 12:22 | Emergency (ER) | payer MEDICAID | END 2022-09-27 14:07 | disposition home or self-care (01) | LOC: LB.ED 12:22 | DX: J06.9 Acute upper respiratory infection, unspecified (principal); I10 Essential (primary) hypertension; J44.9 Chronic obstructive pulmonary disease, unspecified; F17.210 Nicotine dependence, cigarettes, uncomplicated; E66.9 Obesity, unspecified; Z79.899 Other long term (current) drug therapy | CPT/HCPCS: 71045; 99283 ==

== ENCOUNTER 2023-03-12 12:14 | Emergency (ER) | payer MEDICAID ==
[2023-03-12] MEDS ORDERED: Cephalexin 500 MG Cap ONE (13:00)
[2023-03-12] MEDS ORDERED: Ketorolac 60 MG/2 ML SDV IM ONE (13:12)
== END 2023-03-12 13:30 | disposition home or self-care (01) ==
LOC: LB.ED 12:14
DX: S01.512A Laceration without foreign body of oral cavity, initial encounter (principal); L30.9 Dermatitis, unspecified; I10 Essential (primary) hypertension; E66.9 Obesity, unspecified; F17.210 Nicotine dependence, cigarettes, uncomplicated; Z68.34 Body mass index [BMI] 34.0-34.9, adult; Z91.018 Allergy to other foods; Z79.899 Other long term (current) drug therapy; X58.XXXA Exposure to other specified factors, initial encounter
CPT/HCPCS: 96372; 99283; A9270-GY; J1885

== ENCOUNTER 2023-05-03 13:19 | Emergency (ER) | payer MEDICAID ==
[2023-05-03 14:59] LABS: INFLUENZA A NAA NEGATIVE (NEGATIVE); INFLUENZA B NAA NEGATIVE (NEGATIVE); RESPIRATORY SYNCYTIAL VIR NAA NEGATIVE (NEGATIVE)
[2023-05-03 15:00] LABS: CORONAVIRUS COVID-19 NAA POSITIVE (NEGATIVE)
== END 2023-05-03 15:55 | disposition home or self-care (01) ==
LOC: LB.ED 13:19
DX: U07.1 COVID-19 (principal); I10 Essential (primary) hypertension; J44.9 Chronic obstructive pulmonary disease, unspecified; E66.9 Obesity, unspecified; Z79.899 Other long term (current) drug therapy; Z91.048 Other nonmedicinal substance allergy status; Z68.33 Body mass index [BMI] 33.0-33.9, adult
CPT/HCPCS: 0241U; 99283

== ENCOUNTER 2024-01-15 06:36 | Emergency (ER) | payer MEDICAID ==
[2024-01-15] MEDS: Ketorolac 30 MG/ML SDV IM ONE (08:50)
[2024-01-15] MEDS: Ketorolac 30 MG/ML SDV ONE (09:59)
== END 2024-01-15 09:50 | disposition home or self-care (01) ==
LOC: LB.ED 06:36
DX: N89.8 Other specified noninflammatory disorders of vagina (principal); I10 Essential (primary) hypertension; J44.9 Chronic obstructive pulmonary disease, unspecified; E66.9 Obesity, unspecified; F17.210 Nicotine dependence, cigarettes, uncomplicated; Z79.899 Other long term (current) drug therapy; Z88.1 Allergy status to other antibiotic agents; Z91.09 Other allergy status, other than to drugs and biological substances
CPT/HCPCS: 87210; 96372; 99283; J1885

== ENCOUNTER 2024-05-14 16:18 | Emergency (ER) | payer MEDICAID, OTHER ==
[2024-05-14 17:16] LABS: BASOPHILS ABSOLUTE AUTO 0.03 K/uL (0.02-0.10); BASOPHILS PERCENT AUTO 0.2 % (0.0-0.5); EOSINOPHILS ABSOLUTE AUTO 0.26 K/uL (0.04-0.40); HEMATOCRIT 38.1 % (37.0-47.0); HEMOGLOBIN 12.8 g/dL (11.5-16.5); LYMPHOCYTES ABSOLUTE AUTO 2.96 K/uL (1.50-4.00); LYMPHOCYTES PERCENT AUTO 22.7 % (20.0-40.0); MEAN CORPUSCULAR HEMOGLOBIN 31.6 pg (27.0-32.0); MEAN CORPUSCULAR HGB CONC 33.6 g/dL (31.0-35.0); MEAN CORPUSCULAR VOLUME 94 fL (76-96); MEAN PLATELET VOLUME 8.9 fL (6.0-10.0); MONOCYTES ABSOLUTE AUTO 1.16 K/uL (0.20-0.80); MONOCYTES PERCENT AUTO 8.9 % (3.0-10.0); NEUTROPHILS ABSOLUTE AUTO 8.65 K/uL (2.00-7.50); NEUTROPHILS PERCENT AUTO 66.2 % (45.0-70.0); PLATELET COUNT,PLT 325 K/uL (150-500); RED BLOOD CELL COUNT 4.05 M/uL (3.80-5.80); RED CELL DISTRIBUTION WIDTH 12.8 % (11.0-16.0); WHITE BLOOD CELL COUNT,WBC 13.1 K/uL (4.0-11.0)
[2024-05-14] MEDS ORDERED: Sodium Chloride 0.9% 10 ML Syringe FLUSH PRN (17:27)
[2024-05-14] MEDS: Ketorolac 15 MG/ML SDV IVPUSH ONE (17:31)
[2024-05-14 17:38] LABS: A/G RATIO 1.2 (0.8-2.0); ALBUMIN 3.5 g/dL (3.4-5.0); ANION GAP 5.5 mmol/L (5.0-15.0); BILIRUBIN TOTAL 0.3 mg/dL (0.0-1.0); BUN/CREATININE RATIO 13.4 (6-25); CALCIUM 8.5 mg/dL (8.5-10.1); CARBON DIOXIDE,CO2 31.6 mmol/L (21.0-32.0); CREATININE 0.82 mg/dL (0.55-1.02); EST CRCL DRUG DOSING (CG) 79.4 mL/min; POTASSIUM,K 4.1 mmol/L (3.5-5.1); PROTEIN TOTAL,TP 6.5 g/dL (6.4-8.2)
[2024-05-14 17:42] LABS: APPEARANCE,URINE CLEAR (CLEAR); COLOR,URINE YELLOW; PH,URINE 5.5 (5.0-8.0)
[2024-05-14 17:43] LABS: BILIRUBIN,URINE NEGATIVE (NEGATIVE); GLUCOSE,URINE NEGATIVE (NEGATIVE); KETONES,URINE NEGATIVE (NEGATIVE); LEUKOCYTE ESTERASE,URINE NEGATIVE (NEGATIVE); NITRITE,URINE NEGATIVE (NEGATIVE); OCCULT BLOOD,URINE NEGATIVE (NEGATIVE); PROTEIN,URINE NEGATIVE (NEGATIVE); UROBILINOGEN,URINE 0.2 E.U./dL (0.2-1.0)
[2024-05-14 17:48] LABS: C-REACTIVE PROTEIN 1.7 mg/L (<5.0)
[2024-05-14] MEDS ORDERED: Iopamidol 612 MG/ML 100 ML Bottle IV PRN (18:23)
[2024-05-14] MEDS ORDERED: Sodium Chloride 0.9% 50 ML SDV FLUSH SCH (18:30)
[2024-05-14] MEDS ORDERED: traMADol 50 MG Tab ONE ×2 (20:00)
[2024-05-14] MEDS: metroNIDAZOLE 500 MG Tab PO ONE (20:22)
== END 2024-05-14 20:25 | disposition home or self-care (01) ==
LOC: LB.ED 16:18
DX: N83.201 Unspecified ovarian cyst, right side (principal); I10 Essential (primary) hypertension; J44.9 Chronic obstructive pulmonary disease, unspecified; E66.9 Obesity, unspecified; Z91.048 Other nonmedicinal substance allergy status; Z79.899 Other long term (current) drug therapy; Z68.34 Body mass index [BMI] 34.0-34.9, adult
CPT/HCPCS: 36415; 74176; 80053; 81003; 83690; 85025; 86140; 96374; 99284; 99284-25; A9270-GY; J1885

== ENCOUNTER 2024-07-12 17:28 | Emergency (ER) | payer MEDICAID ==
[2024-07-12] MEDS: Aspirin 81 MG Tab.Chew PO ONE (17:41)
[2024-07-12] MEDS: Nitroglycerin 0.4 MG Tab.SL SL PRN (17:42)
[2024-07-12] MEDS ORDERED: Naloxone 2 MG/2 ML Syringe IVPUSH PRN (18:13)
[2024-07-12] MEDS: fentaNYL 100 MCG/2 ML SDV IVPUSH PRN (18:16)
[2024-07-12 19:01] LABS: BASOPHILS ABSOLUTE AUTO 0.04 K/uL (0.02-0.10); BASOPHILS PERCENT AUTO 0.6 % (0.0-0.5); EOSINOPHILS PERCENT AUTO 2.9 % (1.0-5.0); HEMATOCRIT 37.7 % (37.0-47.0); HEMOGLOBIN 12.5 g/dL (11.5-16.5); LYMPHOCYTES ABSOLUTE AUTO 3.23 K/uL (1.50-4.00); LYMPHOCYTES PERCENT AUTO 46.6 % (20.0-40.0); MEAN CORPUSCULAR HEMOGLOBIN 30.6 pg (27.0-32.0); MEAN CORPUSCULAR HGB CONC 33.2 g/dL (31.0-35.0); MEAN CORPUSCULAR VOLUME 92 fL (76-96); MEAN PLATELET VOLUME 9.5 fL (6.0-10.0); MONOCYTES ABSOLUTE AUTO 0.65 K/uL (0.20-0.80); MONOCYTES PERCENT AUTO 9.4 % (3.0-10.0); NEUTROPHILS ABSOLUTE AUTO 2.81 K/uL (2.00-7.50); NEUTROPHILS PERCENT AUTO 40.5 % (45.0-70.0); PLATELET COUNT,PLT 335 K/uL (150-500); RED BLOOD CELL COUNT 4.09 M/uL (3.80-5.80); RED CELL DISTRIBUTION WIDTH 12.3 % (11.0-16.0); WHITE BLOOD CELL COUNT,WBC 6.9 K/uL (4.0-11.0)
[2024-07-12 19:12] LABS: A/G RATIO 1.3 (0.8-2.0); ALBUMIN 3.7 g/dL (3.4-5.0); ANION GAP 3.3 mmol/L (5.0-15.0); BILIRUBIN TOTAL 0.5 mg/dL (0.0-1.0); BUN/CREATININE RATIO 10.8 (6-25); CARBON DIOXIDE,CO2 24.9 mmol/L (21.0-32.0); CREATININE 0.74 mg/dL (0.55-1.02); EST CRCL DRUG DOSING (CG) 91.39 mL/min; POTASSIUM,K 4.2 mmol/L (3.5-5.1); PROTEIN TOTAL,TP 6.6 g/dL (6.4-8.2)
[2024-07-12 19:22] LABS: APPEARANCE,URINE SLIGHTLY CLOUDY (CLEAR); BILIRUBIN,URINE NEGATIVE (NEGATIVE); COLOR,URINE YELLOW; GLUCOSE,URINE NEGATIVE (NEGATIVE); KETONES,URINE NEGATIVE (NEGATIVE); OCCULT BLOOD,URINE NEGATIVE (NEGATIVE); PH,URINE 5.5 (5.0-8.0); PROTEIN,URINE NEGATIVE (NEGATIVE); UROBILINOGEN,URINE 0.2 E.U./dL (0.2-1.0)
[2024-07-12 19:23] LABS: LEUKOCYTE ESTERASE,URINE NEGATIVE (NEGATIVE); NITRITE,URINE NEGATIVE (NEGATIVE); RBC,URINE NOT SEEN /HPF; SQUAMOUS EPITHELIAL CELLS,UR FEW /HPF; WBC,URINE 0-5 /HPF
[2024-07-12 19:24] LABS: METHAMPHETAMINES SCREEN, URINE NEGATIVE (NEGATIVE)
[2024-07-12 19:25] LABS: AMPHETAMINES SCREEN, URINE POSITIVE (NEGATIVE); BARBITURATE SCREEN,URINE NEGATIVE (NEGATIVE); BENZODIAZEPINES SCREEN,URINE NEGATIVE (NEGATIVE); METHADONE SCREEN, URINE NEGATIVE (NEGATIVE); OXYCODONE SCREEN,URINE NEGATIVE (NEGATIVE); THC SCREEN,URINE 50 NG/ML NEGATIVE (NEGATIVE)
[2024-07-12 19:28] LABS: INR 1.1 (1.0-3.5); PTT,PARTIAL THROMBOPLSTIN TIME 24.2 SECONDS (24.4-33.2)
[2024-07-12 19:32] LABS: TROPONIN I HIGH SENSITIVITY 4.7 pg/ml (<=60.4)
[2024-07-12] MEDS: Sodium Chloride 0.9% 50 ML SDV FLUSH ONE (20:54)
[2024-07-12] MEDS: Iopamidol 755 Mg/ML 100 ML Bottle IV SCH (20:54)
[2024-07-12] MEDS: fentaNYL 100 MCG/2 ML SDV IVPUSH ONE (21:05)
== END 2024-07-12 22:25 | disposition home or self-care (01) ==
LOC: LB.ED 17:28
DX: R07.89 Other chest pain (principal); I10 Essential (primary) hypertension; J44.9 Chronic obstructive pulmonary disease, unspecified; Z88.1 Allergy status to other antibiotic agents; Z91.048 Other nonmedicinal substance allergy status; Z88.8 Allergy status to other drugs, medicaments and biological substances; Z79.899 Other long term (current) drug therapy
CPT/HCPCS: 36415; 71045; 71260; 80053; 80307; 81001; 84484; 85025; 85379; 85610; 85730; 93005; 96374; 96376; 99285; A9270; J3010; J3490; Q9967; 93010; 99283